=== PATIENT | female | born 1955 | race Caucasian/White ===

== ENCOUNTER 2016-11-04 21:26 | Emergency (ER) | payer MEDICARE, OTHER ==
[~2016-11-04] VITALS: Ht 160 cm; Wt 77.5 kg
[~2016-11-04 21:26] MED LIST: CLON1 PO; CLOP75 PO; CYCL-36 PO; FURO1TAB93 PO; GABA600T PO; LEXA20TA PO; LEXA5TAB PO; LOSA50TA PO; OMEP20TA PO; POTA-243 PO; QUET50TA PO; SIMV20 PO; TOPA25TA8 PO; TOPI50TA4 PO; [UNRECOGNIZED DRUG - CODE] INJ
[2016-11-04 21:30] VITALS: BP 102/50; PULSE 76; RESP 18; TEMP 98.2; O2SAT 98
[2016-11-04] MEDS ORDERED: LIDOCAINE HCL 1% 50 ML VIAL INFIL ONE (21:45)
[2016-11-04 22:17] LABS: AUTOMATED NEUTROPHIL # 2.5 TH/MM3 (1.8-7.7); BASOPHIL % 1.1 % (0.0-2.0); EOSINOPHIL # 0.1 TH/MM3 (0-0.4); EOSINOPHIL % 3.5 % (0.0-4.0); HEMATOCRIT 33.3 % (35.0-46.0); HEMO FLAGS DIFF FINAL; LYMPH % 30.1 % (9.0-44.0); LYMPHOCYTE # 1.2 TH/MM3 (1.0-4.8); MEAN CELL VOLUME 92.1 FL (80.0-100.0); MEAN CORPUSCULAR HEMOGLOBIN 32.1 PG (27.0-34.0); MEAN CORPUSCULAR HGB CONC 34.8 % (32.0-36.0); MONO % 8.1 % (0.0-8.0); NEUT % 57.2 % (16.0-70.0); PLATELET COUNT 187 TH/MM3 (150-450); RED BLOOD COUNT 3.62 MIL/MM3 (4.00-5.30); RED CELL DISTRIBUTION WIDTH 12.9 % (11.6-17.2); WHITE BLOOD COUNT 4.1 TH/MM3 (4.0-11.0)
--- NOTE | 2016-11-04 22:39 | PD ---
HPI Chief Complaint: Laceration/Skin Injury Time Seen by Provider: 22:25 Travel History International Travel<30 days: No Contact w/Intl Traveler<30days: No Traveled to known affect area: No History of Present Illness HPI 60 year-old woman, swelling of a cut on her left hand cutting it with a knife when she slipped and cut the webspace between her first and second digits on her left hand. She is on blood thinners, for thrombophilia, and had copious bleeding. She applied pressure and was brought to the emergency department. She is a she otherwise has been feeling well and healthy. No other complaints. PFSH Past Medical History Hx Anticoagulant Therapy: Yes Arthritis: Yes Asthma: No Blood Disorders: No Anxiety: Yes Depression: Yes Heart Rhythm Problems: No Cancer: No Cardiovascular Problems: No High Cholesterol: Yes Chemotherapy: No Congestive Heart Failure: No COPD: No Cerebrovascular Accident: No Diabetes: No Diminished Hearing: No Deep Vein Thrombosis: Yes (ANTITHROMBIN 3) Gastrointestinal Disorders: No GERD: Yes Glaucoma: No Genitourinary: Yes (UTI ) Headaches: Yes Hepatitis: No Hiatal Hernia: No Hypertension: Yes Immune Disorder: No Implanted Vascular Access Dvce: No Kidney Stones: Yes Musculoskeletal: Yes (BACK PAIN ) Neurologic: Yes (NEUROPATHY ) Psychiatric: No Reproductive: Yes (total hysterectomy) Respiratory: No Migraines: Yes Myocardial Infarction: No Radiation Therapy: No Seizures: No Sleep Apnea: No Thyroid Disease: No Ulcer: No Tetanus Vaccination: Unknown ?: Not Past Surgical History Abdominal Aneurysm Repair: No Abdominal Surgery: No Appendectomy: Yes Cardiac Surgery: No Cholecystectomy: No Ear Surgery: No Endocrine Surgery: No Eye Surgery: No Genitourinary Surgery: No Gynecologic Surgery: Yes (BREAST BIOPSY/ UTERINE REPAIR) Hysterectomy: Yes Neurologic Surgery: No Oral Surgery: No Pacemaker: No Thoracic Surgery: Yes (VENOUS BYPASS) Other Surgery: Yes (Left Knee Surgery/RIGHT KNEE ) Social History Alcohol Use: Yes Tobacco Use: No (she used to smoke based on the record but she denies on this visits ) Substance Use: Yes (DRUG/ALCOHOL ABUSE SINCE THE ) Allergies-Medications (Allergen,Severity, Reaction): Coded Allergies: Morphine (Verified Allergy, Mild, 11/04/16) STATES IF SHE TAKES IT FOR SEVERAL DAYS SHE FEELS LIKE SHE IS FLYING AROUND THE ROOM Uncoded Allergies: sliver (Allergy, Severe, 10/15/15) bright red rash burning pain Reported Meds & Prescriptions Reported Meds & Active Scripts Active Flexeril (Cyclobenzaprine HCl) 10 Mg Tab 10 Mg PO TID PRN Clonazepam 1 Mg Tab 1 Mg PO TID PRN Reported Topamax (Topiramate) 50 Mg Tab 50 Mg PO DAILY Lexapro (Escitalopram Oxalate) 20 Mg Tab 20 Mg PO DAILY Quetiapine Fumarate 50 mg (Quetiapine Fumarate) 50 Mg Tab 50 Mg PO HS Omeprazole 20 mg (Omeprazole) 20 Mg Tab 20 Mg PO BID Simvastatin 20 mg (Simvastatin) 20 Mg Tab 20 Mg PO HS Losartan Potassium 50 MG (Losartan Potassium) 50 Mg Tab 50 Mg PO DAILY Gabapentin 600 Mg Tab 600 Mg PO BID Plavix (Clopidogrel Bisulfate) 75 Mg Tab 75 Mg PO DAILY Arixtra 7.5 Mg Syr (Fondaparinux Sodium) 7.5 Mg/0.6 Ml Inj 7.5 Mg INJ DAILY Topamax (Topiramate) 25 Mg Tab 25 Mg PO DAILY Lexapro (Escitalopram Oxalate) 5 Mg Tab 5 Mg PO DAILY Lasix (Furosemide) 40 Mg Tab 40 Mg PO BIDPRN LEFT LEG SWELLING Klor-Con 10 Meq (Potassium Chloride) 10 Meq Tabcr 20 Meq PO BIDPRN WHEN TAKING LASIX FOR LEFT LEG SWELLING Review of Systems Except as stated in HPI: all other systems reviewed are Neg Physical Exam Narrative GENERAL: 60 year-old woman, no acute distress. SKIN: Warm and dry. CARDIOVASCULAR: Warm and well perfused. RESPIRATORY: Normal rate and effort. MUSCULOSKELETAL: Focus examination the left hand reveals a partially 3 cm laceration in the webspace between the first and second digit. There is active trickling bleeding. Tendon function appears full in flexion at the PIP DIP joints of all fingers, flexion at the IP joint of the thumb, abduction of the thumb, and opposition of the thumb and the pinky. There is no numbness or tingling in any of the digits. NEUROLOGICAL: Awake and alert. No gross deficits. Data Data Last Documented VS Vital Signs Date Time Temp Pulse Resp B/P Pulse Ox O2 Delivery O2 Flow Rate FiO2 11/04/16 21:30 98.2 76 18 102/50 98 Orders Lidocaine 1% Inj (50 Ml) (Xylocaine 1% I (11/04/16 21:45) Complete Blood Count With Diff (11/04/16 22:10) [id number] (Booster) Inj (Boostrix (11/04/16 23:00) Acetamin-Hydrocod 325-5 Mg ([place] 5-325 (11/04/16 23:00) Tetanus/Diphtheria Tox Adult (Tetanus/Di (11/04/16 23:15) Labs Laboratory Tests Test 11/04/16 22:10 White Blood Count 4.1 TH/MM3 Red Blood Count 3.62 MIL/MM3 Hemoglobin 11.6 GM/DL Hematocrit 33.3 % Mean Corpuscular Volume 92.1 FL Mean Corpuscular Hemoglobin 32.1 PG Mean Corpuscular Hemoglobin 34.8 % Concent Red Cell Distribution Width 12.9 % Platelet Count 187 TH/MM3 Mean Platelet Volume 7.6 FL Neutrophils (%) (Auto) 57.2 % Lymphocytes (%) (Auto) 30.1 % Monocytes (%) (Auto) 8.1 % Eosinophils (%) (Auto) 3.5 % Basophils (%) (Auto) 1.1 % Neutrophils # (Auto) 2.5 TH/MM3 Lymphocytes # (Auto) 1.2 TH/MM3 Monocytes # (Auto) 0.3 TH/MM3 Eosinophils # (Auto) 0.1 TH/MM3 Basophils # (Auto) 0.0 TH/MM3 CBC Comment DIFF FINAL Differential Comment MDM Medical Decision Making Medical Screen Exam Complete: Yes Emergency Medical Condition: Yes Differential Diagnosis Laceration, tendon injury, vascular injury, other Narrative Course Medical decision making INITIAL cause a 60 year-old woman presents to the emergency department with a laceration to the left hand. This was repaired primarily. Following the repair there was some concern about pallor to the third fourth and fifth finger. We just cleansed wound with room temperature saline. No epinephrine was used in anesthetizing the wound. She's had previous surgery to the wrist, and to the left thumb. She had a strong ulnar artery. Digital pulses were able to be found in the first second and third digits, but not the fourth or fifth in the left hand. However when compared to the opposite side there are no digital pulses in the fifth digit on the right hand either. She was monitored in the emergency department, developed no worsening pallor, paresthesias, pain, or limitations. Color improved. Procedures Procedure Narrative LACERATION LOCATION: Left hand LENGTH: 2-3 cm NUMBER OF STITCHES/MARIAN: 7 REPAIR: The area of the laceration was prepped with Betadine and sterilely draped. The laceration was infiltrated with 1% plain lidocaine the wound was copiously irrigated and explored without evidence of foreign body, tendon injury or neurovascular injury. Wound Was closed using 2 deep 4-0 Vicryl sutures. It was then approximated with 3 horizontal mattress sutures in the mid part of the wound, with a total of 7 simple interrupted sutures, 4-0 Prolene , on the outside part of the wound. Patient tolerated well. Diagnosis Primary Impression: Laceration of left hand Additional Instructions: Keep wound clean and dry. Do not wet for 24 hours. After 24 hours and clean the wound gently with soap and water. Gently clean wound twice daily with soap and water. Do not soak wound. No swimming, hot tubs, or allowing wound to get too wet. Apply antibiotic ointment to wound twice daily. Return to the emergency department for any worsening pain, swelling, redness, significant bleeding, or any other new or worsening symptoms. Return to the emergency department or follow-up with her primary doctor in 10 days for suture removal. Med/Other Pt SpecificInfo: Prescription(s) given Scripts Hydrocodone-Acetaminophen (Lortab)5-325 Mg Tab1-2 Tab PO Q6H PRN (PAIN) #12 TAB Prov:Jackson Gaviria MD 11/04/16 Disposition: 01 DISCHARGE HOME Condition: Stable Jackson Gaviria MD Nov 04, 2016 22:39
[2016-11-04] MEDS ORDERED: DIPHTH/TETANUS/ACEL PERTUSSIS (BOOSTER) 0.5 ML VIAL/PFS IM ONE (23:00)
[2016-11-04] MEDS ORDERED: ACETAMINOPHEN/HYDROcodone 325 MG/5 MG TAB PO ONE (23:00)
[2016-11-04] MEDS ORDERED: HYDR-3533 PO (23:03)
[2016-11-04] MEDS ORDERED: TETANUS/DIPHTHERIA TOXOID ADULT 0.5 ML VIAL IM ONE (23:15)
[2016-11-04 23:55] VITALS: BP 120/72
== END 2016-11-04 23:56 | disposition home or self-care (01) ==
LOC: PHED 21:26
DX: S61.412A Laceration without foreign body of left hand, initial encounter (principal); W26.0XXA Contact with knife, initial encounter; Z23 Encounter for immunization
CPT/HCPCS: 12032; 85025; 90471; 90714

== ENCOUNTER 2017-01-27 15:48 | Inpatient (IN) | payer MEDICARE, OTHER ==
[2017-01-27] VITALS (8 sets, daily range): BP systolic 105–157; BP diastolic 58–88; PULSE 74–84; RESP 14–24; TEMP 97.5–97.8; O2SAT 98–100
[~2017-01-27] VITALS: Ht 160 cm; Wt 74.1 kg
[~2017-01-27 15:48] MED LIST changes: +BACL20TA PO; +BACT800T5 PO; +CARA1TAB6 PO; +CLON0.5T PO; -CLON1 PO; -CLOP75 PO; -CYCL-36 PO; -FURO1TAB93 PO; +FURO40TA PO; -GABA600T PO; +GABA800T PO; -LEXA5TAB PO; +OMEP20CA2; -OMEP20TA PO; +OXYC-433 PO; +PLAV75TA29 PO; -POTA-243 PO; +POTA-245 PO; -QUET50TA PO; -SIMV20 PO; -TOPA25TA8 PO; +TOPA50TA7 PO; -TOPI50TA4 PO; +TRAZ100T6 PO; +TRAZ50TA12 PO; +ZOCO20TA PO; -[UNRECOGNIZED DRUG - CODE] INJ; +[UNRECOGNIZED DRUG - CODE] SQ
[2017-01-27] MEDS ORDERED: SODIUM CHLOR 0.9% 1000 ML INJ 1,000 ML IV ONE (16:01)
[2017-01-27] MEDS ORDERED: SODIUM CHLORIDE 0.9% FLUSH 10 ML FLUSH IVF PRN (16:15)
--- NOTE | 2017-01-27 16:52 | PD ---
HPI Chief Complaint: Alcohol/Drug Intoxication Time Seen by Provider: 15:54 Travel History International Travel<30 days: No Contact w/Intl Traveler<30days: No Traveled to known affect area: No History of Present Illness HPI The patient is a 61-year-old female who presents to the emergency department via EMS for altered mental status. EMS states they were called out to the patient's house twice, both times she was found somewhat altered, however , stated that she did not want to go to the hospital to receive medical treatment. EMS states that when they arrived the second time the police arrived , and when the patient refused to go to the hospital they place the patient under a Lebron act. The patient states she has chronic back pain with a tens unit and takes pain medications, however, was unable to tell me what pain medications and muscle relaxer she is currently taken. EMS states that when the patient fell asleep in route to the hospital she became somewhat hypoxic, therefore, they placed an IV and give the patient 2 doses of Narcan. They state that the Narcan did not help the patient, however, when she arrived to the emergency department she suddenly became awake, alert, and agitated. The patient is oriented 1 out of 3, is able to follow simple commands, but is somewhat belligerent. The patient is a somewhat limited historian secondary to current medical condition. PFSH Past Medical History Hx Anticoagulant Therapy: Yes Arthritis: Yes Asthma: No Blood Disorders: No Anxiety: Yes Depression: Yes Heart Rhythm Problems: No Cancer: No Cardiovascular Problems: No High Cholesterol: Yes Chemotherapy: No Congestive Heart Failure: No COPD: No Cerebrovascular Accident: No Diabetes: No Diminished Hearing: No Deep Vein Thrombosis: Yes (ANTITHROMBIN 3) Gastrointestinal Disorders: No GERD: Yes Glaucoma: No Genitourinary: Yes (UTI ) Headaches: Yes Hepatitis: No Hiatal Hernia: No Hypertension: Yes Immune Disorder: No Implanted Vascular Access Dvce: No Kidney Stones: Yes Musculoskeletal: Yes (BACK PAIN ) Neurologic: Yes (NEUROPATHY ) Psychiatric: No Reproductive: Yes (total hysterectomy) Respiratory: No Migraines: Yes Myocardial Infarction: No Radiation Therapy: No Seizures: No Sleep Apnea: No Thyroid Disease: No Ulcer: No Past Surgical History Abdominal Aneurysm Repair: No Abdominal Surgery: No Appendectomy: Yes Cardiac Surgery: No Cholecystectomy: No Ear Surgery: No Endocrine Surgery: No Eye Surgery: No Genitourinary Surgery: No Gynecologic Surgery: Yes (BREAST BIOPSY/ UTERINE REPAIR) Hysterectomy: Yes Neurologic Surgery: No Oral Surgery: No Pacemaker: No Thoracic Surgery: Yes (VENOUS BYPASS) Other Surgery: Yes (Left Knee Surgery/RIGHT KNEE ) Social History Alcohol Use: Yes Tobacco Use: No Substance Use: Yes (DRUG/ALCOHOL ABUSE SINCE THE S ) Allergies-Medications (Allergen,Severity, Reaction): Coded Allergies: silver (Unverified Allergy, Severe, 01/27/17) morphine (Unverified Allergy, Mild, 01/27/17) STATES IF SHE TAKES IT FOR SEVERAL DAYS SHE FEELS LIKE SHE IS FLYING AROUND THE ROOM Reported Meds & Prescriptions Reported Meds & Active Scripts Active Bactrim DS (Sulfamethoxazole-Trimethoprim) 800-160 Mg Tab 1 Tab PO BID Bactrim DS (Sulfamethoxazole-Trimethoprim) 800-160 Mg Tab 1 Tab PO BID Reported Trazodone (Trazodone HCl) 100 Mg Tablet 100 Mg PO HS Trazodone (Trazodone HCl) 50 Mg Tab 25 Mg PO HS Topamax (Topiramate) 50 Mg Tab 50 Mg PO BID Lexapro (Escitalopram Oxalate) 20 Mg Tab 20 Mg PO DAILY Clonazepam 0.5 Mg Tab 0.5 Mg PO DAILY Gabapentin 800 Mg Tab 800 Mg PO TID Oxycodone-Acetaminophen 10-325 mg Tab 1 Tab PO Q6H PRN Baclofen 20 Mg Tab 20 Mg PO TID Carafate (Sucralfate) 1 Gm Tab 1 Gm PO QID On empty stomach Omeprazole 20 Mg Cap Plavix (Clopidogrel Bisulfate) 75 Mg Tab 75 Mg PO DAILY Arixtra Inj (Fondaparinux) 7.5 Mg/0.6 Ml Syr 7.5 Mg SQ Q24H Klor-Con M20 (Potassium Chloride Microencaps) 20 Meq Tab 20 Meq PO DAILY Furosemide 40 Mg Tab 40 Mg PO DAILY Zocor (Simvastatin) 20 Mg Tab 20 Mg PO DAILY Losartan (Losartan Potassium) 50 Mg Tab 50 Mg PO DAILY Review of Systems ROS Limitations: Clinical Condition, Poor Historian Except as stated in HPI: all other systems reviewed are Neg Cardiovascular: No: Chest Pain or Discomfort Respiratory: No: Shortness of Breath Gastrointestinal: No: Nausea, Vomiting, Abdominal Pain Neurologic: Positive: Change in Mentation Physical Exam Narrative GENERAL: Awake, somewhat belligerent 61-year-old female appears her stated age and is in no acute respiratory distress. SKIN: Focused skin assessment warm/dry. HEAD: Atraumatic. Normocephalic. EYES: Pupils equal and round. Pupils are 5 mm bilateral and reactive. ENT: No nasal bleeding or discharge. Mucous membranes pink and moist. NECK: Trachea midline. No JVD. CARDIOVASCULAR: Regular rate and rhythm. No murmur appreciated. RESPIRATORY: No accessory muscle use. Clear to auscultation. Breath sounds equal bilaterally. GASTROINTESTINAL: Abdomen soft, non-tender, nondistended. No rebound tenderness. Back place in place with 10 units. MUSCULOSKELETAL: No obvious deformities. No clubbing. No cyanosis. No edema. Moves all 4 extremities. NEUROLOGICAL: Awake and alert. No obvious cranial nerve deficits. Motor grossly within normal limits. Normal speech. Is oriented to month, but not the current year, president of [facility], or location. PSYCHIATRIC: Slightly altered, unable to assess. Data Data Last Documented VS Vital Signs Date Time Temp Pulse Resp B/P (MAP) Pulse Ox O2 Delivery O2 Flow Rate FiO2 01/27/17 16:38 98 Nasal Cannula 3.00 01/27/17 16:15 84 18 01/27/17 16:00 97.5 105/58 (74) Orders Orders Electrocardiogram (01/27/17 16:) Complete Blood Count With Diff (01/27/17 16:) Comprehensive Metabolic Panel (01/27/17 16:01) Prothrombin Time / Inr (Pt) (01/27/17 16:01) Act Partial Throm Time (Ptt) (01/27/17 16:) Urinalysis - C+S If Indicated (01/27/17 16:) Ct Brain W/O Iv Contrast(Rout) (01/27/17 16:01) Iv Access Insert/Monitor (01/27/17 16:01) Ecg Monitoring (01/27/17 16:01) Oximetry (01/27/17 16:) Psych Screen (01/27/17 16:01) Sodium Chloride 0.9% Flush (Ns Flush) (01/27/17 16:15) Sodium Chlor 0.9% 1000 Ml Inj (Ns 1000 M (01/27/17 16:01) Drug Screen, Random Urine (01/27/17 16:) Alcohol (Ethanol) (01/27/17 16:01) Salicylates (Aspirin) (01/27/17 16:01) Tylenol (Acetaminophen) (01/27/17 16:01) Naloxone Inj (Narcan Inj) (01/27/17 17:15) Admit Order (Ed Use Only) (01/27/17 18:07) Labs Laboratory Tests Test 01/27/17 16:36 01/27/17 17:55 White Blood Count 7.1 TH/MM3 Red Blood Count 3.77 MIL/MM3 Hemoglobin 12.1 GM/DL Hematocrit 35.8 % Mean Corpuscular Volume 95.0 FL Mean Corpuscular Hemoglobin 32.1 PG Mean Corpuscular Hemoglobin Concent 33.8 % Red Cell Distribution Width 13.4 % Platelet Count 270 TH/MM3 Mean Platelet Volume 7.3 FL Neutrophils (%) (Auto) 78.7 % Lymphocytes (%) (Auto) 12.8 % Monocytes (%) (Auto) 5.4 % Eosinophils (%) (Auto) 2.8 % Basophils (%) (Auto) 0.3 % Neutrophils # (Auto) 5.6 TH/MM3 Lymphocytes # (Auto) 0.9 TH/MM3 Monocytes # (Auto) 0.4 TH/MM3 Eosinophils # (Auto) 0.2 TH/MM3 Basophils # (Auto) 0.0 TH/MM3 CBC Comment DIFF FINAL Differential Comment Urine Color YELLOW Urine Turbidity CLEAR Urine pH 5.5 Urine Specific [place] 1.007 Urine Protein NEG mg/dL Urine Glucose (UA) NEG mg/dL Urine Ketones NEG mg/dL Urine Occult Blood SMALL Urine Nitrite NEG Urine Bilirubin NEG Urine Urobilinogen LESS THAN 2.0 MG/DL Urine Leukocyte Esterase TRACE Urine WBC 5 /hpf Urine Squamous Epithelial Cells <1 /hpf Urine Mucus FEW /lpf Microscopic Urinalysis Comment CULT NOT INDICATED Blood Urea Nitrogen 22 MG/DL Creatinine 2.05 MG/DL Random Glucose 88 MG/DL Total Protein 7.3 GM/DL Albumin 3.7 GM/DL Calcium Level 8.3 MG/DL Alkaline Phosphatase 98 U/L Aspartate Amino Transf (AST/SGOT) 24 U/L Alanine Aminotransferase (ALT/SGPT) 20 U/L Total Bilirubin 0.5 MG/DL Sodium Level 138 MEQ/L Potassium Level 3.3 MEQ/L Chloride Level 108 MEQ/L Carbon Dioxide Level 18.3 MEQ/L Anion Gap 12 MEQ/L Estimat Glomerular Filtration Rate 24 ML/MIN Salicylates Level LESS THAN 1.7 MG/DL Acetaminophen Level 3.4 MCG/ML Ethyl Alcohol Level LESS THAN 3 MG/DL MDM Medical Decision Making Medical Screen Exam Complete: Yes Emergency Medical Condition: Yes Medical Record Reviewed: Yes Interpretation(s) EKG reveals normal sinus rhythm with a rate 82. Q wave noted in lead 3. Laboratory Tests Test 01/27/17 16:36 White Blood Count 7.1 TH/MM3 Red Blood Count 3.77 MIL/MM3 Hemoglobin 12.1 GM/DL Hematocrit 35.8 % Mean Corpuscular Volume 95.0 FL Mean Corpuscular Hemoglobin 32.1 PG Mean Corpuscular Hemoglobin Concent 33.8 % Red Cell Distribution Width 13.4 % Platelet Count 270 TH/MM3 Mean Platelet Volume 7.3 FL Neutrophils (%) (Auto) 78.7 % Lymphocytes (%) (Auto) 12.8 % Monocytes (%) (Auto) 5.4 % Eosinophils (%) (Auto) 2.8 % Basophils (%) (Auto) 0.3 % Neutrophils # (Auto) 5.6 TH/MM3 Lymphocytes # (Auto) 0.9 TH/MM3 Monocytes # (Auto) 0.4 TH/MM3 Eosinophils # (Auto) 0.2 TH/MM3 Basophils # (Auto) 0.0 TH/MM3 CBC Comment DIFF FINAL Differential Comment Urine Color YELLOW Urine Turbidity CLEAR Urine pH 5.5 Urine Specific [place] 1.007 Urine Protein NEG mg/dL Urine Glucose (UA) NEG mg/dL Urine Ketones NEG mg/dL Urine Occult Blood SMALL Urine Nitrite NEG Urine Bilirubin NEG Urine Urobilinogen LESS THAN 2.0 MG/DL Urine Leukocyte Esterase TRACE Urine WBC 5 /hpf Urine Squamous Epithelial Cells <1 /hpf Urine Mucus FEW /lpf Microscopic Urinalysis Comment CULT NOT INDICATED Blood Urea Nitrogen 22 MG/DL Creatinine 2.05 MG/DL Random Glucose 88 MG/DL Total Protein 7.3 GM/DL Albumin 3.7 GM/DL Calcium Level 8.3 MG/DL Alkaline Phosphatase 98 U/L Aspartate Amino Transf (AST/SGOT) 24 U/L Alanine Aminotransferase (ALT/SGPT) 20 U/L Total Bilirubin 0.5 MG/DL Sodium Level 138 MEQ/L Potassium Level 3.3 MEQ/L Chloride Level 108 MEQ/L Carbon Dioxide Level 18.3 MEQ/L Anion Gap 12 MEQ/L Estimat Glomerular Filtration Rate 24 ML/MIN Salicylates Level LESS THAN 1.7 MG/DL Acetaminophen Level 3.4 MCG/ML Ethyl Alcohol Level LESS THAN 3 MG/DL Differential Diagnosis Differential diagnosis includes medication overdose, alcohol intoxication, polysubstance abuse, intracranial hemorrhage, hyponatremia, delirium. Narrative Course IV was established, labs are drawn and sent, and the patient was placed on cardiac telemetry monitoring and continuous pulse oximetry monitoring. EKG was ordered and interpreted. CT the brain was obtained. Salicylate level and acetaminophen level were sent to lab. The patient's creatinine was elevated, greater than 2, previous creatinines were normal. Potassium is minimally low, otherwise unremarkable. Salicylates and Tylenol was unremarkable. The patient would fall asleep easily, had deep inspirations, negative placed on oxygen. She did have a gag reflex, but fell asleep easily and needed a stiff sternal rub repetitively to awaken. The patient was administer Narcan 2 mg IV, this did not affect the patient's mental status. She may have mixed medication ingestion including benzodiazepines and opiates. The patient is a Lebron act, is unable to go to the medical floor or the psychiatric unit, will need observation in the intensive care unit overnight. Therefore, the on-call locks tender was paged for admission. The patient will need admission in the intensive care unit overnight to monitor her mental status and airway. Physician Communication Physician Communication The on-call locks tender was paged for admission. I discussed the patient with Dr. Velazco who agrees with admission. Diagnosis Primary Impression: Altered mental status Qualified Codes: R41.82 - Altered mental status, unspecified Additional Impression: Drug ingestion Qualified Codes: T50.904A - Poisoning by unspecified drugs, medicaments and biological substances, undetermined, initial encounter Admitting Information Admitting Physician Requests: Admit Condition: Stable Asa Siddiqui MD Jan 27, 2017 16:52
[2017-01-27 17:02] LABS: BLOOD, URINE SMALL (NEG); COMMENT (UR) CULT NOT INDICATED; CULTURE IF INDICATED CULT NOT INDICATED; GLUCOSE,URINE NEG (NEG); KETONE, URINE NEG (NEG); MUCUS URINE FEW /lpf (OCC); NITRITE,URINE NEG (NEG); PH, URINE 5.5 (5.0-8.5); SQUAMOUS EPITHELIAL CELL URINE <1 /hpf (0-5); URINE COLOR YELLOW (YELLW/STRAW)
[2017-01-27 17:03] LABS: AUTOMATED NEUTROPHIL # 5.6 TH/MM3 (1.8-7.7); BASOPHIL % 0.3 % (0.0-2.0); EOSINOPHIL # 0.2 TH/MM3 (0-0.4); EOSINOPHIL % 2.8 % (0.0-4.0); HEMATOCRIT 35.8 % (35.0-46.0); HEMO FLAGS DIFF FINAL; LYMPH % 12.8 % (9.0-44.0); LYMPHOCYTE # 0.9 TH/MM3 (1.0-4.8); MEAN CORPUSCULAR HEMOGLOBIN 32.1 PG (27.0-34.0); MEAN CORPUSCULAR HGB CONC 33.8 % (32.0-36.0); MONO % 5.4 % (0.0-8.0); NEUT % 78.7 % (16.0-70.0); PLATELET COUNT 270 TH/MM3 (150-450); RED BLOOD COUNT 3.77 MIL/MM3 (4.00-5.30); RED CELL DISTRIBUTION WIDTH 13.4 % (11.6-17.2); WHITE BLOOD COUNT 7.1 TH/MM3 (4.0-11.0)
[2017-01-27] MEDS ORDERED: NALOXONE HCL 2 MG/2 ML VIAL IV PUSH ONE (17:15)
[2017-01-27 17:17] LABS: ACETAMINOPHEN 3.4 MCG/ML (10.0-30.0); ALT (GPT) 20 U/L (10-53); ANION GAP 12 MEQ/L (5-15); AST (GOT) 24 U/L (15-37); BICARBONATE 18.3 MEQ/L (21.0-32.0); BLOOD UREA NITROGEN 22 MG/DL (7-18); CHLORIDE 108 MEQ/L (98-107); GLOMERULAR FILTRATION RATE 24 ML/MIN (>89); POTASSIUM 3.3 MEQ/L (3.5-5.1); SODIUM (NA) 138 MEQ/L (136-145)
[2017-01-27 17:19] LABS: ALKALINE PHOSPHATASE 98 U/L (45-117); TOTAL BILIRUBIN ADULT 0.5 MG/DL (0.2-1.0)
[2017-01-27 17:44] LABS: ALCOHOL LESS THAN 3 MG/DL (0-5)
--- NOTE | 2017-01-27 17:52 | RADRPT ---
EXAM DATE/TIME: 01/27/2017 17:38 [facility] COMPARISON: No previous studies available for comparison. INDICATIONS : Confusion with altered mental status,unresponsive. RADIATION DOSE: 34.95 CTDIvol (mGy) MEDICAL HISTORY : Hypertension. Deep venous thrombosis. SURGICAL HISTORY : Hysterectomy. venous bypass ENCOUNTER: Initial ACUITY: 1 day PAIN SCALE: 2/10 LOCATION: Bilateral cranial TECHNIQUE: Multiple contiguous axial images were obtained of the head. Using automated exposure control and adj ustment of the mA and/or kV according to patient size, radiation dose was kept as low as reasonably a chievable to obtain optimal diagnostic quality images. DICOM format image data is available electro nically for review and comparison. FINDINGS: There is no evidence for intracranial hemorrhage, mass effect, mass lesions, edema, or extra-axial fl uid collections. The visualized bony structures appear intact. The ventricles are normal size for t he patient's age. There are no signs of acute infarction for technique. CONCLUSION: Unremarkable study. Zita Pearson MD on January 27, 2017 at 17:49 Board Certified Radiologist. This report was verified electronically.
[2017-01-27 18:34] LABS: APTT (PATIENT) 28.5 SEC (24.3-30.1); PROTHROMBIN TIME - PATIENT 10.8 SEC (9.8-11.6)
[2017-01-27] MEDS ORDERED: MAGNESIUM HYDROXIDE SUSP 30 ML CUP PO PRN (19:45)
[2017-01-27] MEDS ORDERED: BISACODYL 10 MG SUPP RECTAL PRN (19:45)
[2017-01-27] MEDS ORDERED: CHLORHEXIDINE GLUCONATE 2 % 1 PACK (2 CLOTHS) TOP PRN (19:45)
[2017-01-27] MEDS ORDERED: SODIUM CHLORIDE 0.9% FLUSH 10 ML FLUSH PRN (19:45)
[2017-01-27] MEDS ORDERED: ACETAMINOPHEN 325 MG TAB PO PRN (19:45)
[2017-01-27] MEDS ORDERED: ONDANSETRON HCL 4 MG/2 ML VIAL IV PUSH PRN (19:45)
[2017-01-27] MEDS ORDERED: RESP: ALBUTEROL 2.5 MG/IPRATROPIUM 0.5 MG NEB (PRN) INH (19:45)
[2017-01-27] MEDS ORDERED: LACTULOSE SYRUP 20 GM/30 ML CUP PO PRN (19:45)
[2017-01-27] MEDS ORDERED: MISCELLANEOUS NURSING INFORMATION XX SCH (19:45)
--- NOTE | 2017-01-27 19:45 | HHI.HP ---
HPI Service Critical Care Medicine Primary Care Physician Unknown Admission Diagnosis drug ingestion, altered mental status, Lebron act Diagnosis: Travel History International Travel<30 Days: No Contact w/Intl Traveler <30 Da: No Traveled to Known Affected Are: No History of Present Illness 61-year-old female presents via EMS for altered mental status. EMS states they were called out to the patient's house twice, both times she was found somewhat altered, however, stated that she did not want to go to the hospital to receive medical treatment. EMS states that when they arrived the second time the police arrived, and when the patient refused to go to the hospital they place the patient under a Lebron act. The patient has chronic back pain and takes pain medications, however, was unable to clarify what pain medications and muscle relaxer she is currently taken. EMS states that when the patient fell asleep in route to the hospital she became somewhat hypoxic, therefore, they placed an IV and give the patient 2 doses of Narcan. They state that the Narcan did not help the patient, however, when she arrived to the emergency department she suddenly became awake, alert, and agitated. Review of Systems ROS Unobtainable due to altered mental status Past Family Social History Allergies: Coded Allergies: silver (Unverified Allergy, Severe, 01/27/17) morphine (Unverified Allergy, Mild, 01/27/17) STATES IF SHE TAKES IT FOR SEVERAL DAYS SHE FEELS LIKE SHE IS FLYING AROUND THE ROOM Past Medical History Anti-thrombin 3 deficiency, on Arixtra and Plavix Hypertension Peripheral neuropathy Mood disorder Hyperlipidemia Chronic pain syndrome Osteoarthritis Past Surgical History Tonsillectomy Appendectomy Cholecystectomy Hysterectomy Bilateral knee replacements Bilateral breast biopsies Reported Medications Reported Meds & Active Scripts Active Bactrim DS (Sulfamethoxazole-Trimethoprim) 800-160 Mg Tab 1 Tab PO BID Bactrim DS (Sulfamethoxazole-Trimethoprim) 800-160 Mg Tab 1 Tab PO BID Reported Trazodone (Trazodone HCl) 100 Mg Tablet 100 Mg PO HS Trazodone (Trazodone HCl) 50 Mg Tab 25 Mg PO HS Topamax (Topiramate) 50 Mg Tab 50 Mg PO BID Lexapro (Escitalopram Oxalate) 20 Mg Tab 20 Mg PO DAILY Clonazepam 0.5 Mg Tab 0.5 Mg PO DAILY Gabapentin 800 Mg Tab 800 Mg PO TID Oxycodone-Acetaminophen 10-325 mg Tab 1 Tab PO Q6H PRN Baclofen 20 Mg Tab 20 Mg PO TID Carafate (Sucralfate) 1 Gm Tab 1 Gm PO QID On empty stomach Omeprazole 20 Mg Cap Plavix (Clopidogrel Bisulfate) 75 Mg Tab 75 Mg PO DAILY Arixtra Inj (Fondaparinux) 7.5 Mg/0.6 Ml Syr 7.5 Mg SQ Q24H Klor-Con M20 (Potassium Chloride Microencaps) 20 Meq Tab 20 Meq PO DAILY Furosemide 40 Mg Tab 40 Mg PO DAILY Zocor (Simvastatin) 20 Mg Tab 20 Mg PO DAILY Losartan (Losartan Potassium) 50 Mg Tab 50 Mg PO DAILY Active Ordered Medications Current Medications Medications (Trade) Dose Ordered Sig/Karsten Route PRN Reason Start Time Stop Time Status Last Admin Dose Admin Baclofen (Lioresal) 20 mg TID PO 01/28/17 09:00 Clonazepam (KlonoPIN) 0.5 mg DAILY PO 01/28/17 09:00 Clopidogrel Bisulfate (Plavix) 75 mg DAILY PO 01/28/17 09:00 Escitalopram Oxalate (Lexapro) 20 mg DAILY PO 01/28/17 09:00 Fondaparinux (Arixtra Inj) 7.5 mg Q24H SQ 01/27/17 21:00 Gabapentin (Neurontin) 800 mg TID PO 01/28/17 09:00 Oxycodone/ Acetaminophen (Percocet 10-325 Mg) 1 tab Q6H PRN PO PAIN 6-10 01/27/17 19:45 Sucralfate (Carafate) 1 gm QID PO 01/27/17 21:00 Trimethoprim/ Sulfamethoxazole (Bactrim Ds 800-160 Mg) 1 tab BID PO 01/27/17 21:00 Topiramate (Topamax) 50 mg BID PO 01/27/17 21:00 Pravastatin Sodium (Pravachol) 40 mg DAILY PO 01/28/17 09:00 Trazodone HCl (Desyrel) 100 mg HS PO 01/27/17 21:00 Sodium Chloride 1,000 ml @ 84 mls/hr [id number] IV 01/27/17 19:34 Sodium Chloride (NS Flush) 2 ml UNSCH PRN .XX FLUSH AFTER USING IV ACCESS 01/27/17 19:45 Sodium Chloride (NS Flush) 2 ml BID .XX 01/27/17 21:00 Acetaminophen (Tylenol) 650 mg Q6H PRN PO PAIN 1-5 AND/OR FEVER >101F 01/27/17 19:45 Famotidine (Pepcid Inj) 10 mg Q12HR IV PUSH 01/27/17 21:00 Lorazepam (Ativan Inj) 1 mg Q1H PRN IV PUSH Agitation/Sedation 01/27/17 19:45 Ondansetron HCl (Zofran Inj) 4 mg Q6H PRN IV PUSH NAUSEA OR VOMITING 01/27/17 19:45 Albuterol/ Ipratropium (Duoneb Neb) 1 ampule Q2HR NEB PRN INH WHEEZING 01/27/17 19:45 Miscellaneous Information 1 Q361D XX 01/27/17 19:45 Chlorhexidine Gluconate (Chlorhexidine 2% Cloth) 3 pack Taper DAILY@04 TOP 01/28/17 04:00 01/24/18 03:59 Chlorhexidine Gluconate (Chlorhexidine 2% Cloth) 3 pack UNSCH PRN TOP HYGIENIC CARE 01/27/17 19:45 Senna/Docusate Sodium (Renee-Colace) 1 tab BID PO 01/27/17 21:00 Magnesium Hydroxide (Milk Of Magnesia Liq) 30 ml Q12H PRN PO MILD - MODERATE CONSTIPATION 01/27/17 19:45 Sennosides (Senokot) 17.2 mg Q12H PRN PO MODERATE - SEVERE CONSTIPATION 01/27/17 19:45 Bisacodyl (Dulcolax Supp) 10 mg DAILY PRN RECTAL SEVERE CONSITIPATION 01/27/17 19:45 Lactulose (Lactulose Liq) 30 ml DAILY PRN PO SEVERE CONSITIPATION 01/27/17 19:45 Family History Positive for diabetes and coronary artery disease Social History No documented history of alcohol or tobacco abuse Physical Exam Vital Signs Vital Signs Date Time Temp Pulse Resp B/P (MAP) Pulse Ox O2 Delivery O2 Flow Rate FiO2 01/27/17 19:40 84 14 128/63 (84) 98 Nasal Cannula 2.00 01/27/17 16:38 98 Nasal Cannula 3.00 01/27/17 16:15 84 18 94 Room Air 01/27/17 16:00 97.5 84 18 105/58 (74) 98 Physical Exam GENERAL: Well-nourished, well-developed patient. Confused and agitated SKIN: Warm and dry. HEAD: Normocephalic. EYES: No scleral icterus. No injection or drainage. NECK: Supple, trachea midline. No JVD or lymphadenopathy. CARDIOVASCULAR: Regular rate and rhythm without murmurs, gallops, or rubs. RESPIRATORY: Breath sounds equal bilaterally. No accessory muscle use. GASTROINTESTINAL: Abdomen soft, non-tender, nondistended. MUSCULOSKELETAL: No cyanosis, or edema. BACK: Nontender without obvious deformity. NEURO EXAM: GCS: M V E Mental Status: The patient is confused and agitated with a garbled speech. Cranial Nerves: Pupils are round, reactive to light. Reflexes: Biceps, patellar, and Achilles are 2/4 bilaterally. No clonus. Laboratory Laboratory Tests Test 01/27/17 16:36 01/27/17 17:55 White Blood Count 7.1 Red Blood Count 3.77 Hemoglobin 12.1 Hematocrit 35.8 Mean Corpuscular Volume 95.0 Mean Corpuscular Hemoglobin 32.1 Mean Corpuscular Hemoglobin Concent 33.8 Red Cell Distribution Width 13.4 Platelet Count 270 Mean Platelet Volume 7.3 Neutrophils (%) (Auto) 78.7 Lymphocytes (%) (Auto) 12.8 Monocytes (%) (Auto) 5.4 Eosinophils (%) (Auto) 2.8 Basophils (%) (Auto) 0.3 Neutrophils # (Auto) 5.6 Lymphocytes # (Auto) 0.9 Monocytes # (Auto) 0.4 Eosinophils # (Auto) 0.2 Basophils # (Auto) 0.0 CBC Comment DIFF FINAL Differential Comment Urine Color YELLOW Urine Turbidity CLEAR Urine pH 5.5 Urine Specific [place] 1.007 Urine Protein NEG Urine Glucose (UA) NEG Urine Ketones NEG Urine Occult Blood SMALL Urine Nitrite NEG Urine Bilirubin NEG Urine Urobilinogen LESS THAN 2.0 Urine Leukocyte Esterase TRACE Urine WBC 5 Urine Squamous Epithelial Cells <1 Urine Mucus FEW Microscopic Urinalysis Comment CULT NOT INDICATED Blood Urea Nitrogen 22 Creatinine 2.05 Random Glucose 88 Total Protein 7.3 Albumin 3.7 Calcium Level 8.3 Alkaline Phosphatase 98 Aspartate Amino Transf (AST/SGOT) 24 Alanine Aminotransferase (ALT/SGPT) 20 Total Bilirubin 0.5 Sodium Level 138 Potassium Level 3.3 Chloride Level 108 Carbon Dioxide Level 18.3 Anion Gap 12 Estimat Glomerular Filtration Rate 24 Salicylates Level LESS THAN 1.7 Urine Opiates Screen NEG Acetaminophen Level 3.4 Urine Barbiturates Screen NEG Urine Amphetamines Screen NEG Urine Benzodiazepines Screen NEG Urine Cocaine Screen NEG Urine Cannabinoids Screen NEG Ethyl Alcohol Level LESS THAN 3 Prothrombin Time 10.8 Prothromb Time International Ratio 1.0 Activated Partial Thromboplast Time 28.5 Result Diagram: 01/27/17 1636 01/27/17 1636 Imaging Last [address] 01/27/17 1601 Signed Impressions: Service Date/Time: January 17:38 - CONCLUSION: Unremarkable study. MD Ana Paula Walters VTE Risk Assessment Caprini VTE Risk Assessment: Mod/High Risk (score >= 2) Caprini Risk Assessment Model Point Value = 1 Point Value = 2 Point Value = 3 Point Value = 5 Age 41-60 Minor surgery BMI > 25 kg/m2 Swollen legs Varicose veins or History of unexplained or recurrent spontaneous Oral contraceptives or hormone replacement Sepsis (< 1 month) Serious lung disease, including pneumonia (< 1 month) Abnormal pulmonary function Acute myocardial infarction Congestive heart failure (< 1 month) History of inflammatory bowel disease Medical patient at bed rest Age 61-74 Arthroscopic surgery Major open surgery (> 45 min) Laparoscopic surgery (> 45 min) Malignancy Confined to bed (> 72 hours) Immobilizing plaster cast Central venous access Age >= 75 History of VTE Family history of VTE Factor V Leiden Prothrombin [id number] Lupus anticoagulant Anticardiolipin antibodies Elevated serum homocysteine Heparin-induced thrombocytopenia Other congenital or acquired thrombophilia Stroke (< 1 month) Elective arthroplasty Hip, pelvis, or leg fracture Acute spinal cord injury (< 1 month) Prophylaxis Regimen Total Risk Factor Score Risk Level Prophylaxis Regimen 0-1 Low Early ambulation 2 Moderate Order ONE of the following: *Sequential Compression Device (SCD) *Heparin 5000 units SQ BID 3-4 Higher Order ONE of the following medications: *Heparin 5000 units SQ TID *Enoxaparin/Lovenox 40 mg SQ daily (WT < 150 kg, CrCl > 30 mL/min) *Enoxaparin/Lovenox 30 mg SQ daily (WT < 150 kg, CrCl > 10-29 mL/min) *Enoxaparin/Lovenox 30 mg SQ BID (WT < 150 kg, CrCl > 30 mL/min) AND/OR *Sequential Compression Device (SCD) 5 or more Highest Order ONE of the following medications: *Heparin 5000 units SQ TID (Preferred with Epidurals) *Enoxaparin/Lovenox 40 mg SQ daily (WT < 150 kg, CrCl > 30 mL/min) *Enoxaparin/Lovenox 30 mg SQ daily (WT < 150 kg, CrCl > 10-29 mL/min) *Enoxaparin/Lovenox 30 mg SQ BID (WT < 150 kg, CrCl > 30 mL/min) AND *Sequential Compression Device (SCD) Assessment and Plan Assessment and Plan Altered mental status - Polypharmacy affect - Weeks all sedatives - CT head negative - Neuro checks per ICU protocol Anti-thrombin 3 deficiency - Arixtra and Plavix Hypertension - Currently normotensive - When necessary meds when indicated Peripheral neuropathy - Gabapentin Mood disorder - Lexapro - Clonazepam - Topiramate - Trazodone Hyperlipidemia - Pravastatin Chronic pain syndrome - Baclofen - Percocet DVT GI prophylaxis - Arixtra - Teds SCDs - Pepcid Critical Care: The total critical care time was 35 minutes. Time to perform other separately billable procedures was not included in the critical care time. Mehrdad Velazco MD Jan 27, 2017 19:45
[2017-01-27] MEDS: SODIUM CHLORIDE 0.9% FLUSH 10 ML FLUSH SCH (21:00)
[2017-01-27] MEDS: SULFAMETHOXAZOLE-TRIMETHOPRIM DS 800-160 MG TAB PO SCH (21:00)
[2017-01-27] MEDS: TOPIRAMATE 25 MG TAB PO SCH (21:00)
[2017-01-27] MEDS: DOCUSATE SODIUM 50 MG/SENNA 8.6 MG TAB PO SCH (21:00)
[2017-01-27] MEDS ORDERED: traZODone HCL 50 MG TAB PO SCH (21:00)
[2017-01-27] MEDS: SUCRALFATE 1 GM TAB PO SCH (21:00)
[2017-01-27] MEDS: traZODone HCL 100 MG TAB PO SCH (21:00)
[2017-01-27] MEDS: FAMOTIDINE 20 MG/2 ML VIAL IV PUSH SCH (22:42)
[2017-01-27] MEDS: FONDAPARINUX SODIUM 7.5 MG/0.6 ML SYRINGE SQ SCH (22:43)
[2017-01-28] VITALS (23 sets, daily range): BP systolic 101–131; BP diastolic 54–76; PULSE 74–87; RESP 12–39; TEMP 97.8–98.5; O2SAT 78–100
[2017-01-28] MEDS: traZODone HCL 100 MG TAB PO SCH ×2 (01:36→21:01)
[2017-01-28] MEDS: LORazepam 2 MG/ML VIAL IV PUSH PRN ×3 (01:37→21:06)
[2017-01-28] MEDS: CHLORHEXIDINE GLUCONATE 2 % 1 PACK (2 CLOTHS) TOP SCH (04:00)
[2017-01-28 04:40] LABS: AUTOMATED NEUTROPHIL # 5.4 TH/MM3 (1.8-7.7); BASOPHIL % 0.3 % (0.0-2.0); EOSINOPHIL # 0.1 TH/MM3 (0-0.4); HEMATOCRIT 43.2 % (35.0-46.0); HEMO FLAGS DIFF FINAL; LYMPH % 14.2 % (9.0-44.0); MEAN CELL VOLUME 97.8 FL (80.0-100.0); MEAN CORPUSCULAR HEMOGLOBIN 32.7 PG (27.0-34.0); MEAN CORPUSCULAR HGB CONC 33.5 % (32.0-36.0); MONO % 2.9 % (0.0-8.0); NEUT % 80.6 % (16.0-70.0); PLATELET COUNT 216 TH/MM3 (150-450); RED BLOOD COUNT 4.42 MIL/MM3 (4.00-5.30); RED CELL DISTRIBUTION WIDTH 13.8 % (11.6-17.2); WHITE BLOOD COUNT 6.7 TH/MM3 (4.0-11.0)
[2017-01-28 04:54] LABS: ALT (GPT) 26 U/L (10-53); ANION GAP 13 MEQ/L (5-15); AST (GOT) 29 U/L (15-37); CHLORIDE 111 MEQ/L (98-107); GLOMERULAR FILTRATION RATE 43 ML/MIN (>89); MAGNESIUM LESS THAN 0.3 MG/DL (1.5-2.5); POTASSIUM 3.3 MEQ/L (3.5-5.1); SODIUM (NA) 141 MEQ/L (136-145)
[2017-01-28 04:57] LABS: ALKALINE PHOSPHATASE 119 U/L (45-117); BLOOD UREA NITROGEN 20 MG/DL (7-18); TOTAL BILIRUBIN ADULT 0.6 MG/DL (0.2-1.0)
[2017-01-28] MEDS ORDERED: POTASSIUM CHLORIDE 25 MEQ EFFERVESCENT TAB PO ONE (06:45)
[2017-01-28] MEDS: TOPIRAMATE 25 MG TAB PO SCH ×3 (08:43→23:31)
[2017-01-28] MEDS: SULFAMETHOXAZOLE-TRIMETHOPRIM DS 800-160 MG TAB PO SCH ×2 (08:43→21:01)
[2017-01-28] MEDS: PRAVASTATIN SOD 40 MG TAB PO SCH ×2 (08:43→09:00)
[2017-01-28] MEDS: BACLOFEN 20 MG TAB PO SCH ×4 (08:43→18:00)
[2017-01-28] MEDS: CLOPIDOGREL 75 MG TAB PO SCH (08:43)
[2017-01-28] MEDS: ESCITALOPRAM OXALATE 20 MG TAB PO SCH ×2 (08:43→09:00)
[2017-01-28] MEDS: SUCRALFATE 1 GM TAB PO SCH ×4 (08:43→21:01)
[2017-01-28] MEDS: DOCUSATE SODIUM 50 MG/SENNA 8.6 MG TAB PO SCH ×2 (08:43→21:01)
[2017-01-28] MEDS: GABAPENTIN 400 MG CAP PO SCH ×3 (08:43→19:40)
[2017-01-28] MEDS: clonazePAM 0.5 MG TAB PO SCH ×2 (08:43→09:00)
[2017-01-28] MEDS: SODIUM CHLORIDE 0.9% FLUSH 10 ML FLUSH SCH ×2 (08:44→21:00)
[2017-01-28] MEDS: FAMOTIDINE 20 MG/2 ML VIAL IV PUSH SCH ×2 (08:44→21:02)
[2017-01-28] MEDS: SODIUM CHLOR 0.9% 1000 ML INJ 1,000 ML IV SCH ×3 (09:01→19:24)
--- NOTE | 2017-01-28 10:47 | HHI.CCPN ---
Subjective Remarks/Hospital Course 61-year-old female presents via EMS for altered mental status. EMS states they were called out to the patient's house twice, both times she was found somewhat altered, however, stated that she did not want to go to the hospital to receive medical treatment. EMS states that when they arrived the second time the police arrived, and when the patient refused to go to the hospital they place the patient under a Lebron act. The patient has chronic back pain and takes pain medications, however, was unable to clarify what pain medications and muscle relaxer she is currently taken. EMS states that when the patient fell asleep in route to the hospital she became somewhat hypoxic, therefore, they placed an IV and give the patient 2 doses of Narcan. They state that the Narcan did not help the patient, however, when she arrived to the emergency department she suddenly became awake, alert, and agitated. Subjective: 01/28: The patient continues to be altered, patient oriented to self. The patient was given an morning medications, which she subsequently held in mouth and spit out in the cup and was found in the hospital room. Patient was noted to have hypomagnesemia and hypokalemia electrolytes are being repleted. Labs are pending, per poison control recommendations. Psychiatry has been consulted , appreciate recommendations. Of note patient was previously admitted 10/2016 with similar diagnosis. Objective Vital Signs Date Time Temp Pulse Resp B/P (MAP) Pulse Ox O2 Delivery O2 Flow Rate FiO2 01/28/17 09:00 82 27 106/76 (86) 100 01/28/17 07:00 98.5 01/27/17 21:33 Nasal Cannula 2.00 Intake and Output 01/28/17 01/28/17 01/29/17 08:00 16:00 00:00 Intake Total 240 ml Output Total 1101 ml Balance -861 ml Result Diagram: 01/28/17 0421 01/28/17 0421 Imaging Last [address] 01/27/17 1601 Signed Impressions: Service Date/Time: January 17:38 - CONCLUSION: Unremarkable study. Zita Pearson MD Objective Remarks GENERAL: Well-nourished, well-developed patient, speaking inappropriately the majority of the time extremely confused with intermittent bouts of agitation SKIN: Warm and dry. HEAD: Normocephalic. EYES: No scleral icterus. No injection or drainage. NECK: Supple, trachea midline. No JVD or lymphadenopathy. CARDIOVASCULAR: Regular rate and rhythm without murmurs, gallops, or rubs. RESPIRATORY: Breath sounds equal bilaterally. No accessory muscle use. GASTROINTESTINAL: Abdomen soft, non-tender, nondistended. MUSCULOSKELETAL: No cyanosis, or edema. BACK: Nontender without obvious deformity. NEURO EXAM: GCS: M6 V4 E4 Mental Status: The patient is confused and agitated. Cranial Nerves: Pupils are round, reactive to light. Reflexes: Biceps, patellar, and Achilles are 2/4 bilaterally. No clonus. Urinary Catheter: Yes Assessment to: Remove Date of Insertion: Jan 27, 2017 Date of Removal: Jan 28, 2017 Vascular Central Line Catheter: No A/P Assessment and Plan Altered mental status - Polypharmacy affect - Weeks all sedatives - CT head negative - Neuro checks per ICU protocol Anti-thrombin 3 deficiency - Arixtra and Plavix Hypertension - Currently normotensive, hemodynamically stable - When necessary meds when indicated - Obtain baseline EKG Peripheral neuropathy - Gabapentin Mood disorder - Lexapro - Clonazepam - Topiramate - Trazodone Hyperlipidemia - Pravastatin Chronic pain syndrome - Baclofen - Percocet Hypokalemia Hypomagnesemia - Replete electrolytes per ICU protocol DVT GI prophylaxis - Arixtra - Teds SCDs - Pepcid Dispo: Level 2 Plan transfer this a.m. to [facility], psychiatry consulted. Discussed with CUPROUS CHLORIDE OPERATOR at bedside Physician Fara Mercado MD Jan 28, 2017 10:47
--- NOTE | 2017-01-28 11:46 | EKG ---
Date Performed: 01/27/2017 Time Performed: 16:32:17 PTAGE: 61 years EKG: Sinus rhythm NORMAL ECG PREVIOUS TRACING : 12/31/2015 11.17 No significant change from previous tracing noted. DOCTOR: Yo Wu Interpretating Date/Time 01/28/2017 11:45:25
--- NOTE | 2017-01-28 11:59 | EKG ---
Date Performed: 01/28/2017 Time Performed: 11:11:48 PTAGE: 61 years EKG: Sinus rhythm LOW QRS VOLTAGE IN PRECORDIAL LEADS BORDERLINE ECG PREVIOUS TRACING : 01/27/2017 16.32 No significant change from previous tracing noted. DOCTOR: Yo Wu Interpretating Date/Time 01/28/2017 11:58:51
[2017-01-28] MEDS: MAGNESIUM SULFATE 1 GM PREMIX 100 ML IV SCH ×2 (12:06→13:10)
[2017-01-28 12:40] LABS: INTERNATIONAL NORMALIZED RATIO 1.4 RATIO; PROTHROMBIN TIME - PATIENT 16.2 SEC (9.8-11.6)
--- NOTE | 2017-01-28 13:11 | HHI.PR ---
Subjective Remarks Follow-up altered mental status. Patient remains confused. She denies pain currently. No dyspnea. Objective Vitals Vital Signs Date Time Temp Pulse Resp B/P (MAP) Pulse Ox O2 Delivery O2 Flow Rate FiO2 01/28/17 12:00 86 16 104/54 (71) 97 01/28/17 11:01 84 20 103/54 (70) 97 01/28/17 11:00 84 19 97 01/28/17 11:00 97.8 01/28/17 09:00 82 27 106/76 (86) 100 01/28/17 08:41 83 39 131/58 (82) 100 01/28/17 08:00 85 29 96 01/28/17 07:00 98.5 01/28/17 06:00 83 01/28/17 04:00 82 01/28/17 03:00 85 12 101/57 (72) 94 01/28/17 02:00 85 01/28/17 00:00 74 01/27/17 23:00 74 01/27/17 23:00 74 24 157/88 (111) 100 01/27/17 22:00 77 01/27/17 21:33 100 Nasal Cannula 2.00 01/27/17 21:06 97.8 79 20 112/59 (76) 100 01/27/17 20:37 01/27/17 20:18 100 Nasal Cannula 2.00 01/27/17 19:40 84 14 128/63 (84) 98 Nasal Cannula 2.00 01/27/17 16:38 98 Nasal Cannula 3.00 01/27/17 16:15 84 18 94 Room Air 01/27/17 16:00 97.5 84 18 105/58 (74) 98 I/O 01/27/17 01/27/17 01/27/17 01/28/17 01/28/17 01/28/17 07:00 15:00 23:00 07:00 15:00 23:00 Intake Total 1000 ml 240 ml Output Total 1500 ml 1101 ml Balance -500 ml -861 ml Intake Oral 240 ml IV Total 1000 ml Output Urine Total 1500 ml 1100 ml Stool Total 1 ml Result Diagram: 01/28/17 0421 01/28/17 042 Imaging Last Impressions Head CT 01/27/17 1601 Signed Impressions: Service Date/Time: January 17:38 - CONCLUSION: Unremarkable study. Zita Pearson MD Objective Remarks General: No acute distress. Heart: Regular rate and rhythm. No murmur. Lungs: Clear to auscultation bilaterally. No wheezes, rales, or rhonchi. Breathing is nonlabored. Abdomen: Soft, nontender, nondistended. Extremities: No lower extremity edema. Psych: Alert, confused. States that the year is 1974. Procedures None Urinary Catheter: Yes Assessment to: Remove Date of Insertion: Jan 27, 2017 Date of Removal: Jan 28, 2017 Vascular Central Line Catheter: No A/P Problem List: (1) Encephalopathy ICD Code: G93.40 - Encephalopathy, unspecified (2) Hypertension ICD Code: I10 - Essential (primary) hypertension (3) Peripheral neuropathy ICD Code: G62.9 - Polyneuropathy, unspecified (4) Mood disorder ICD Code: F39 - Unspecified mood [affective] disorder (5) Hyperlipidemia ICD Code: E78.5 - Hyperlipidemia, unspecified (6) Chronic pain syndrome ICD Code: G89.4 - Chronic pain syndrome (7) Hypokalemia ICD Code: E87.6 - Hypokalemia (8) Hypomagnesemia ICD Code: E83.42 - Hypomagnesemia Assessment and Plan 1. Encephalopathy: Likely secondary to polypharmacy. CT of the head is negative. Continue neuro checks. 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 3. Hypertension: Blood pressure has been well controlled. 4. Peripheral neuropathy: Continue gabapentin. 5. Mood disorder: Continue Lexapro, clonazepam, trazodone. 6. Hyperlipidemia: Continue statin. 7. Chronic pain syndrome: Continue baclofen, Percocet. 8. Hypokalemia: Supplement potassium. Recheck labs in the morning. 9. Hypomagnesemia: Replace magnesium. Follow labs. 10. GI prophylaxis: Pepcid. 11. DVT prophylaxis: Arixtra, SCDs, ABRAHAM picharode. 12. Lebron act: Psychiatry consultation pending. Discharge Planning Possible transfer to medical/psychiatric unit soon. Neeraj Gomez MD Jan 28, 2017 13:11
[2017-01-28 13:26] LABS: ACETAMINOPHEN LESS THAN 2.0 MCG/ML (10.0-30.0); ALKALINE PHOSPHATASE 93 U/L (45-117); ALT (GPT) 20 U/L (10-53); ANION GAP 7 MEQ/L (5-15); AST (GOT) 25 U/L (15-37); BICARBONATE 25.5 MEQ/L (21.0-32.0); BLOOD UREA NITROGEN 18 MG/DL (7-18); CHLORIDE 112 MEQ/L (98-107); GLOMERULAR FILTRATION RATE 59 ML/MIN (>89); POTASSIUM 3.8 MEQ/L (3.5-5.1); SODIUM (NA) 144 MEQ/L (136-145); TOTAL BILIRUBIN ADULT 0.4 MG/DL (0.2-1.0)
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
[2017-01-28] MEDS: FONDAPARINUX SODIUM 7.5 MG/0.6 ML SYRINGE SQ SCH (21:03)
[2017-01-29] VITALS (8 sets, daily range): BP systolic 97–140; BP diastolic 53–72; PULSE 72–88; RESP 17–20; TEMP 96.7–97.9; O2SAT 95–98
[2017-01-29] MEDS: LORazepam 2 MG/ML VIAL IV PUSH PRN (00:29)
[2017-01-29] MEDS: CHLORHEXIDINE GLUCONATE 2 % 1 PACK (2 CLOTHS) TOP SCH (04:00)
[2017-01-29] MEDS: SODIUM CHLOR 0.9% 1000 ML INJ 1,000 ML IV SCH (07:19)
[2017-01-29] MEDS: DOCUSATE SODIUM 50 MG/SENNA 8.6 MG TAB PO SCH ×2 (09:00→21:35)
[2017-01-29] MEDS: clonazePAM 0.5 MG TAB PO SCH (09:39)
[2017-01-29] MEDS: SULFAMETHOXAZOLE-TRIMETHOPRIM DS 800-160 MG TAB PO SCH ×2 (09:39→21:35)
[2017-01-29] MEDS: BACLOFEN 20 MG TAB PO SCH ×3 (09:40→16:33)
[2017-01-29] MEDS: GABAPENTIN 400 MG CAP PO SCH ×3 (09:40→16:32)
[2017-01-29] MEDS: CLOPIDOGREL 75 MG TAB PO SCH (09:40)
[2017-01-29] MEDS: SUCRALFATE 1 GM TAB PO SCH ×4 (09:40→21:35)
[2017-01-29] MEDS: TOPIRAMATE 25 MG TAB PO SCH ×2 (09:40→21:36)
[2017-01-29] MEDS: oxyCODONE/ACETAMINOPHEN 10 MG/325 MG TAB PO PRN ×2 (09:40→16:33)
[2017-01-29] MEDS: FAMOTIDINE 20 MG/2 ML VIAL IV PUSH SCH ×2 (09:41→21:36)
[2017-01-29] MEDS: ESCITALOPRAM OXALATE 20 MG TAB PO SCH (09:41)
[2017-01-29] MEDS: PRAVASTATIN SOD 40 MG TAB PO SCH (09:41)
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
[2017-01-29] MEDS: SODIUM CHLORIDE 0.9% FLUSH 10 ML FLUSH SCH ×2 (09:42→21:36)
[2017-01-29 12:27] LABS: AUTOMATED NEUTROPHIL # 3.9 TH/MM3 (1.8-7.7); BASOPHIL % 0.9 % (0.0-2.0); EOSINOPHIL # 0.1 TH/MM3 (0-0.4); EOSINOPHIL % 2.1 % (0.0-4.0); HEMATOCRIT 34.5 % (35.0-46.0); HEMO FLAGS DIFF FINAL; LYMPH % 15.1 % (9.0-44.0); LYMPHOCYTE # 0.8 TH/MM3 (1.0-4.8); MEAN CELL VOLUME 94.3 FL (80.0-100.0); MEAN CORPUSCULAR HEMOGLOBIN 31.5 PG (27.0-34.0); MEAN CORPUSCULAR HGB CONC 33.4 % (32.0-36.0); MONO % 5.8 % (0.0-8.0); NEUT % 76.1 % (16.0-70.0); PLATELET COUNT 321 TH/MM3 (150-450); RED BLOOD COUNT 3.65 MIL/MM3 (4.00-5.30); RED CELL DISTRIBUTION WIDTH 13.8 % (11.6-17.2); WHITE BLOOD COUNT 5.1 TH/MM3 (4.0-11.0)
[2017-01-29 12:55] LABS: ANION GAP 10 MEQ/L (5-15); AST (GOT) 17 U/L (15-37); BICARBONATE 21.2 MEQ/L (21.0-32.0); BLOOD UREA NITROGEN 9 MG/DL (7-18); CHLORIDE 112 MEQ/L (98-107); GLOMERULAR FILTRATION RATE 75 ML/MIN (>89); MAGNESIUM 2.3 MG/DL (1.5-2.5); POTASSIUM 3.5 MEQ/L (3.5-5.1); SODIUM (NA) 143 MEQ/L (136-145)
[2017-01-29 13:13] LABS: ALKALINE PHOSPHATASE 89 U/L (45-117); ALT (GPT) 16 U/L (10-53); TOTAL BILIRUBIN ADULT 0.3 MG/DL (0.2-1.0)
[2017-01-29] MEDS ORDERED: POTASSIUM PHOSPHATE MONOBASIC 500 MG TAB PO ONE (13:45)
--- NOTE | 2017-01-29 16:33 | HHI.PR ---
Subjective Patient symptoms today Patient with psychiatric history now with urinary retention. Bladder scan identified over 1L of urine in bladder. Jacobson catheter in place. -Recommend maintain catheter in place until stabilization of her current psychosis -Once medically/psychiatrically improved, may remove jacobson catheter for voiding trial -If unable to void or PVR shows greater than 500cc, recommend replacement of jacobson catheter -She may be discharged with the jacobson catheter in place if unable to adequately void -Patient may follow-up with Urology in clinic after discharge for further management regarding her voiding status Objective Result Diagram: 01/29/17 1131 01/29/17 1131 Jose Alatorre MD Jan 29, 2017 16:33
[2017-01-29] MEDS: FONDAPARINUX SODIUM 7.5 MG/0.6 ML SYRINGE SQ SCH (21:35)
[2017-01-29] MEDS: traZODone HCL 50 MG TAB PO SCH (22:57)
[2017-01-29] MEDS: SUMAtriptan SUCCINATE 25 MG TAB PO PRN (23:01)
[2017-01-30] VITALS (10 sets, daily range): BP systolic 117–136; BP diastolic 60–67; PULSE 65–76; RESP 16–22; TEMP 96.7–97.9; O2SAT 95–98
[2017-01-30] MEDS: CHLORHEXIDINE GLUCONATE 2 % 1 PACK (2 CLOTHS) TOP SCH (04:00)
[2017-01-30] MEDS: oxyCODONE/ACETAMINOPHEN 10 MG/325 MG TAB PO PRN ×3 (06:30→17:58)
[2017-01-30] MEDS: SODIUM CHLOR 0.9% 1000 ML INJ 1,000 ML IV SCH ×2 (07:09→19:04)
[2017-01-30] MEDS: TOPIRAMATE 25 MG TAB PO SCH ×2 (08:32→21:29)
[2017-01-30] MEDS: BACLOFEN 20 MG TAB PO SCH ×3 (08:32→17:58)
[2017-01-30] MEDS: clonazePAM 0.5 MG TAB PO SCH (08:32)
[2017-01-30] MEDS: CLOPIDOGREL 75 MG TAB PO SCH (08:32)
[2017-01-30] MEDS: SUCRALFATE 1 GM TAB PO SCH ×4 (08:33→21:29)
[2017-01-30] MEDS: DOCUSATE SODIUM 50 MG/SENNA 8.6 MG TAB PO SCH ×2 (08:33→21:00)
[2017-01-30] MEDS: SULFAMETHOXAZOLE-TRIMETHOPRIM DS 800-160 MG TAB PO SCH ×2 (08:33→21:29)
[2017-01-30] MEDS: ESCITALOPRAM OXALATE 20 MG TAB PO SCH (08:33)
[2017-01-30] MEDS: GABAPENTIN 400 MG CAP PO SCH ×3 (08:33→17:58)
[2017-01-30] MEDS: PRAVASTATIN SOD 40 MG TAB PO SCH (08:33)
[2017-01-30] MEDS: FAMOTIDINE 20 MG/2 ML VIAL IV PUSH SCH ×2 (08:35→21:29)
[2017-01-30] MEDS: SODIUM CHLORIDE 0.9% FLUSH 10 ML FLUSH SCH ×2 (08:35→21:30)
[2017-01-30 09:25] LABS: MAGNESIUM 2.1 MG/DL (1.5-2.5)
[2017-01-30 09:49] LABS: BICARBONATE 22.2 MEQ/L (21.0-32.0); POTASSIUM 3.3 MEQ/L (3.5-5.1)
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
[2017-01-30] MEDS: traZODone HCL 50 MG TAB PO SCH (21:29)
[2017-01-30] MEDS: FONDAPARINUX SODIUM 7.5 MG/0.6 ML SYRINGE SQ SCH (21:30)
[2017-01-31] VITALS (11 sets, daily range): BP systolic 112–142; BP diastolic 57–68; PULSE 67–79; RESP 14–17; TEMP 96.4–98; O2SAT 95–98
[2017-01-31] MEDS: oxyCODONE/ACETAMINOPHEN 10 MG/325 MG TAB PO PRN ×4 (00:43→18:02)
[2017-01-31] MEDS: CHLORHEXIDINE GLUCONATE 2 % 1 PACK (2 CLOTHS) TOP SCH (04:00)
[2017-01-31] MEDS: SODIUM CHLOR 0.9% 1000 ML INJ 1,000 ML IV SCH ×2 (04:26→18:54)
[2017-01-31] MEDS: DOCUSATE SODIUM 50 MG/SENNA 8.6 MG TAB PO SCH ×2 (09:08→21:00)
[2017-01-31] MEDS: SULFAMETHOXAZOLE-TRIMETHOPRIM DS 800-160 MG TAB PO SCH ×2 (09:09→23:15)
[2017-01-31] MEDS: BACLOFEN 20 MG TAB PO SCH ×3 (09:09→18:02)
[2017-01-31] MEDS: CLOPIDOGREL 75 MG TAB PO SCH (09:09)
[2017-01-31] MEDS: SUCRALFATE 1 GM TAB PO SCH ×4 (09:09→23:15)
[2017-01-31] MEDS: PRAVASTATIN SOD 40 MG TAB PO SCH (09:09)
[2017-01-31] MEDS: clonazePAM 0.5 MG TAB PO SCH (09:10)
[2017-01-31] MEDS: ESCITALOPRAM OXALATE 20 MG TAB PO SCH (09:15)
[2017-01-31] MEDS: TOPIRAMATE 25 MG TAB PO SCH ×2 (09:17→23:16)
[2017-01-31] MEDS: GABAPENTIN 400 MG CAP PO SCH ×3 (09:18→18:02)
[2017-01-31] MEDS: FAMOTIDINE 20 MG/2 ML VIAL IV PUSH SCH ×2 (09:18→23:17)
[2017-01-31] MEDS: SODIUM CHLORIDE 0.9% FLUSH 10 ML FLUSH SCH ×2 (09:19→23:17)
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
[2017-01-31] MEDS: FONDAPARINUX SODIUM 7.5 MG/0.6 ML SYRINGE SQ SCH (21:00)
[2017-01-31] MEDS: traZODone HCL 50 MG TAB PO SCH (23:15)
[2017-02-01] VITALS (8 sets, daily range): BP systolic 111–154; BP diastolic 58–69; PULSE 63–75; RESP 16–22; TEMP 96.3–98; O2SAT 93–99
[2017-02-01] MEDS: oxyCODONE/ACETAMINOPHEN 10 MG/325 MG TAB PO PRN ×4 (00:04→22:08)
[2017-02-01] MEDS: LORazepam 2 MG/ML VIAL IV PUSH PRN ×4 (03:08→23:39)
[2017-02-01] MEDS: CHLORHEXIDINE GLUCONATE 2 % 1 PACK (2 CLOTHS) TOP SCH (04:00)
[2017-02-01] MEDS: SODIUM CHLOR 0.9% 1000 ML INJ 1,000 ML IV SCH ×2 (04:41→18:44)
[2017-02-01] MEDS: CLOPIDOGREL 75 MG TAB PO SCH (09:00)
[2017-02-01] MEDS: TOPIRAMATE 25 MG TAB PO SCH ×2 (09:29→22:02)
[2017-02-01] MEDS: GABAPENTIN 400 MG CAP PO SCH ×3 (09:29→18:34)
[2017-02-01] MEDS: DOCUSATE SODIUM 50 MG/SENNA 8.6 MG TAB PO SCH ×2 (09:29→22:03)
[2017-02-01] MEDS: ESCITALOPRAM OXALATE 20 MG TAB PO SCH (09:29)
[2017-02-01] MEDS: SUCRALFATE 1 GM TAB PO SCH ×4 (09:29→22:02)
[2017-02-01] MEDS: BACLOFEN 20 MG TAB PO SCH ×3 (09:30→18:33)
[2017-02-01] MEDS: PRAVASTATIN SOD 40 MG TAB PO SCH (09:30)
[2017-02-01] MEDS: clonazePAM 0.5 MG TAB PO SCH (09:30)
[2017-02-01] MEDS: SULFAMETHOXAZOLE-TRIMETHOPRIM DS 800-160 MG TAB PO SCH ×2 (09:30→22:03)
[2017-02-01] MEDS: FAMOTIDINE 20 MG/2 ML VIAL IV PUSH SCH ×2 (09:31→21:00)
[2017-02-01] MEDS: SODIUM CHLORIDE 0.9% FLUSH 10 ML FLUSH SCH ×2 (09:32→22:04)
[2017-02-01] MEDS: SUMAtriptan SUCCINATE 25 MG TAB PO PRN (11:06)
[2017-02-01] MEDS ORDERED: LORATADINE 10 MG TAB PO ONE (15:15)
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
[2017-02-01] MEDS ORDERED: MULTIVITAMIN TAB PO ONE (16:45)
[2017-02-01] MEDS: SENNOSIDES 8.6 MG TAB PO PRN (18:38)
[2017-02-01] MEDS: FONDAPARINUX SODIUM 7.5 MG/0.6 ML SYRINGE SQ SCH (21:00)
[2017-02-01] MEDS: CHLORHEXIDINE GLUCONATE 0.12% 15 ML CUP SWISH-SPIT SCH ×2 (21:00→23:40)
[2017-02-01] MEDS: traZODone HCL 50 MG TAB PO SCH (22:03)
[2017-02-02] VITALS (9 sets, daily range): BP systolic 118–129; BP diastolic 57–63; PULSE 64–78; RESP 16–20; TEMP 96.4–97.1; O2SAT 93–99
[2017-02-02] MEDS: CHLORHEXIDINE GLUCONATE 2 % 1 PACK (2 CLOTHS) TOP SCH (04:00)
[2017-02-02] MEDS: SODIUM CHLOR 0.9% 1000 ML INJ 1,000 ML IV SCH ×2 (06:39→18:34)
[2017-02-02] MEDS ORDERED: ENOXAPARIN SODIUM 40 MG/0.4 ML SYRINGE SQ SCH (08:30)
[2017-02-02] MEDS ORDERED: LORATADINE 10 MG TAB PO SCH (09:00)
[2017-02-02] MEDS ORDERED: MULTIVITAMIN TAB PO SCH (09:00)
[2017-02-02] MEDS ORDERED: FONDAPARINUX SODIUM 7.5 MG/0.6 ML SYRINGE SQ ONE (09:15)
[2017-02-02] MEDS: ESCITALOPRAM OXALATE 20 MG TAB PO SCH (09:29)
[2017-02-02] MEDS: TOPIRAMATE 25 MG TAB PO SCH ×2 (09:29→21:00)
[2017-02-02] MEDS: BACLOFEN 20 MG TAB PO SCH ×3 (09:29→18:14)
[2017-02-02] MEDS: DOCUSATE SODIUM 50 MG/SENNA 8.6 MG TAB PO SCH ×2 (09:30→21:00)
[2017-02-02] MEDS: SUCRALFATE 1 GM TAB PO SCH ×4 (09:30→21:56)
[2017-02-02] MEDS: clonazePAM 0.5 MG TAB PO SCH (09:30)
[2017-02-02] MEDS: SULFAMETHOXAZOLE-TRIMETHOPRIM DS 800-160 MG TAB PO SCH (09:30)
[2017-02-02] MEDS: PRAVASTATIN SOD 40 MG TAB PO SCH (09:30)
[2017-02-02] MEDS: GABAPENTIN 400 MG CAP PO SCH ×3 (09:31→18:14)
[2017-02-02] MEDS: oxyCODONE/ACETAMINOPHEN 10 MG/325 MG TAB PO PRN ×3 (09:31→22:01)
[2017-02-02] MEDS: FAMOTIDINE 20 MG/2 ML VIAL IV PUSH SCH ×2 (09:31→21:00)
[2017-02-02] MEDS: SODIUM CHLORIDE 0.9% FLUSH 10 ML FLUSH SCH ×2 (09:32→21:58)
[2017-02-02] MEDS: CHLORHEXIDINE GLUCONATE 0.12% 15 ML CUP SWISH-SPIT SCH ×2 (09:32→21:00)
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
[2017-02-02] MEDS: SENNOSIDES 8.6 MG TAB PO PRN (12:39)
[2017-02-02] MEDS: LORazepam 2 MG/ML VIAL IV PUSH PRN ×2 (12:40→21:55)
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
--- NOTE | 2017-02-02 14:34 | HHI.DS ---
Discharge Summary Admission Date Jan 27, 2017 at 18:08 Discharge Date: Feb 02, 2017 Admitting Diagnosis drug ingestion, altered mental status, Lebron act (1) Hypophosphatemia ICD Code: E83.39 - Other disorders of phosphorus metabolism (2) Encephalopathy ICD Code: G93.40 - Encephalopathy, unspecified (3) Hypertension ICD Code: I10 - Essential (primary) hypertension (4) Peripheral neuropathy ICD Code: G62.9 - Polyneuropathy, unspecified (5) Mood disorder ICD Code: F39 - Unspecified mood [affective] disorder (6) Hypokalemia ICD Code: E87.6 - Hypokalemia (7) Hypomagnesemia ICD Code: E83.42 - Hypomagnesemia (8) Urinary retention ICD Code: R33.9 - Retention of urine, unspecified (9) Unspecified psychosis ICD Code: F29 - Unspecified psychosis not due to a substance or known physiological condition (10) Drug ingestion ICD Code: T50.901A - Poisoning by unspecified drugs, medicaments and biological substances, accidental (unintentional), initial encounter Status: Acute (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 EMS states they were called out to the patient's house twice, both times she was found somewhat altered, however, stated that she did not want to go to the hospital to receive medical treatment. EMS states that when they arrived the second time the police arrived, and when the patient refused to go to the hospital they place the patient under a Lebron act. The patient has chronic back pain and takes pain medications, however, was unable to clarify what pain medications and muscle relaxer she is currently taken. EMS states that when the patient fell asleep in route to the hospital she became somewhat hypoxic, therefore, they placed an IV and give the patient 2 doses of Narcan. They state that the Narcan did not help the patient, however, when she arrived to the emergency department she suddenly became awake, alert, and agitated. CBC/BMP: 01/29/17 1131 01/30/17 0731 Imaging Current Medications Medications (Trade) Dose Ordered Sig/Karsten Route Start Time Stop Time Status Last Admin (Lioresal) 20 mg TID PO 01/28/17 09:00 02/02/17 12:39 (KlonoPIN) 0.5 mg DAILY PO 01/28/17 09:00 02/02/17 09:30 (Plavix) 75 mg DAILY PO 01/28/17 09:00 Future Hold 01/31/17 09:09 (Lexapro) 20 mg DAILY PO 01/28/17 09:00 02/02/17 09:29 (Neurontin) 800 mg TID PO 01/28/17 09:00 02/02/17 12:39 (Percocet 10-325 Mg) 1 tab Q6H PRN PO 01/27/17 19:45 02/02/17 09:31 (Carafate) 1 gm QID PO 01/27/17 21:00 02/02/17 09:30 (Topamax) 50 mg BID PO 01/27/17 21:00 02/02/17 09:29 (Pravachol) 40 mg DAILY PO 01/28/17 09:00 02/02/17 09:30 Sodium Chloride 1,000 ml @ 84 mls/hr [id number] IV 01/27/17 19:34 01/28/17 19:24 (NS Flush) 2 ml UNSCH PRN .XX 01/27/17 19:45 (NS Flush) 2 ml BID .XX 01/27/17 21:00 02/02/17 09:32 (Tylenol) 650 mg Q6H PRN PO 01/27/17 19:45 (Ativan Inj) 1 mg Q1H PRN IV PUSH 01/27/17 19:45 02/02/17 12:40 (Zofran Inj) 4 mg Q6H PRN IV PUSH 01/27/17 19:45 (Duoneb Neb) 1 ampule Q2HR NEB PRN INH 01/27/17 19:45 Miscellaneous Information 1 Q361D XX 01/27/17 19:45 (Chlorhexidine 2% Cloth) Taper DAILY@04 TOP 01/28/17 04:00 01/24/18 03:59 02/02/17 04:00 (Chlorhexidine 2% Cloth) 3 pack UNSCH PRN TOP 01/27/17 19:45 (Renee-Colace) 1 tab BID PO 01/27/17 21:00 02/02/17 09:30 (Milk Of Magnesia Liq) 30 ml Q12H PRN PO 01/27/17 19:45 (Senokot) 17.2 mg Q12H PRN PO 01/27/17 19:45 02/02/17 12:39 (Dulcolax Supp) 10 mg DAILY PRN RECTAL 01/27/17 19:45 (Lactulose Liq) 30 ml DAILY PRN PO 01/27/17 19:45 (Desyrel) 150 mg HS PO 01/29/17 22:30 02/01/17 22:03 (Imitrex) 25 mg DAILY PRN PO 01/29/17 22:15 02/01/17 11:06 (Claritin) 10 mg DAILY PO 02/02/17 09:00 02/02/17 09:30 (Peridex 0.12% Liq) 15 ml BID SWISH-SPIT 02/01/17 21:00 02/02/17 09:32 (Theragran) 1 tab DAILY PO 02/02/17 09:00 02/02/17 09:29 (Pepcid Inj) 20 mg Q12HR IV PUSH 02/02/17 09:00 02/02/17 09:31 (Arixtra Inj) 7.5 mg Q24H SQ 02/03/17 21:00 PE at Discharge GENERAL: Well-nourished, well-developed patient in NAD. Sleeping but easily awakens to voice. Appears comfortable. SKIN: Warm and dry. (+)hyperpigmentation changes noted on LLE distally. HEAD: Normocephalic. Atraumatic. EYES: EOMI. No scleral icterus. No injection or drainage. ENT: No nasal bleeding or discharge. Mucous membranes pink and moist. NECK: Supple. Trachea midline. CARDIOVASCULAR: Regular rate and rhythm. S1, S2 noted. (+)murmur. RESPIRATORY: No accessory muscle use. Clear to auscultation. Breath sounds equal bilaterally. GASTROINTESTINAL: Abdomen soft, non-tender, nondistended. Normoactive bowel sounds x4. GENITOURINARY: German in place with clear yellow urine in the bag. MUSCULOSKELETAL: No obvious deformities. Extremities without clubbing, cyanosis , or edema. NEUROLOGICAL: Awake and alert. No obvious cranial nerve deficits. Motor grossly within normal limits. 5/5 muscle strength in bilateral upper and lower extremities. Normal speech. Pt update on day of discharge Patient seen and examined. States she feels well. Complaining about dietary choices on the menu. Patient reports refusing blood draw earlier today because skilled labor refused to draw blood from the right arm and was attempting to use too large of a needle per patient report. Patient states she is agreeable to having another security operations engineer come draw her blood. Patient out of Arixtra for 2 days but confirmed with pharmacy and nursing medication now available. Hospital Course 61-year-old female presents via EMS for altered mental status. EMS states they were called out to the patient's house twice, both times she was found somewhat altered, however, stated that she did not want to go to the hospital to receive medical treatment. EMS states that when they arrived the second time the police arrived, and when the patient refused to go to the hospital they place the patient under a Lebron act. The patient has chronic back pain and takes pain medications, however, was unable to clarify what pain medications and muscle relaxer she is currently taken. EMS states that when the patient fell asleep in route to the hospital she became somewhat hypoxic, therefore, they placed an IV and give the patient 2 doses of Narcan. They state that the Narcan did not help the patient, however, when she arrived to the emergency department she suddenly became awake, alert, and agitated. 1. Encephalopathy: Likely secondary to polypharmacy. Admitted to critical care service - please refer to their notes. CT of the head is negative. Resolved. 2. Psychosis: Patient under Lebron Act. Psychiatry following, appreciate their assistance. Plan to transfer to med/psych once open. Sitter at bedside. 3. 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 Patient states she does not need Plavix and is refusing the medication. Hematology consulted for clarification. Patient has not had her Arixtra due to hospital shortage. Confirmed with pharmacy and nursing staff medication now available. Patient received Arixtra dose today. 4. Hypertension: Blood pressure has been well controlled off of medications. Continue to monitor. 5. Peripheral neuropathy: Continue gabapentin. 6. Mood disorder: Continue Lexapro, clonazepam, trazodone unless otherwise indicated by psychiatry. 7. Hyperlipidemia: Continue statin. 8. Chronic pain syndrome: Continue baclofen, Percocet. Continue with PT - although patient refused today. 9. Hypokalemia: Supplement potassium. Repeat labs pending. 10. Hypophosphatemia: repletion ordered. Repeat labs pending. 11. Urinary retention: Patient had 1000 cc of urine on bladder scan. German catheter was placed. Evaluated by Urology, appreciate their recommendations - recommend maintaining catheter in place until stabilization of her current psychosis. 12. Dental caries: Peridex BID 13. Murmur: Obtain 2D echo for further evaluation. 14. GI prophylaxis: Pepcid. 15. DVT prophylaxis: Arixtra not available, Lovenox 40mg sq, Meggan, ABRAHAM mackenzie. Case discussed with patient, Denisse GUILLERMO, and Dr. Gomez. Pt Condition on Discharge: Stable Discharge Disposition: Disc to Psych Care Fac Discharge Time: > 30 minutes Discharge Instructions DIET: Follow Instructions for: Heart Healthy Diet Activities you can perform: Regular-No Restrictions Follow up Referrals: PCP Follow-up - 1 Week Urology - 1 Week Continued Medications: Baclofen (Baclofen) 20 Mg Tab 20 MG PO TID for Muscle Spasm, TAB 0 Refills Clonazepam (Clonazepam) 0.5 Mg Tab 0.5 MG PO DAILY, #60 TAB 0 Refills Clopidogrel (Plavix) 75 Mg Tab 75 MG PO DAILY for Blood Clot Prevention, #30 TAB 0 Refills Escitalopram (Lexapro) 20 Mg Tab 20 MG PO DAILY, #30 TAB 0 Refills Fondaparinux Inj (Arixtra Inj) 7.5 Mg/0.6 Ml Syr 7.5 MG SQ Q24H for Blood Clot Prevention, SYRINGE 0 Refills Gabapentin (Gabapentin) 800 Mg Tab 800 MG PO TID, #90 TAB 0 Refills Omeprazole (Omeprazole) 20 Mg Cap Oxycodone-Acetaminophen (Oxycodone-Acetaminophen) 10-325 mg Tab 1 TAB PO Q6H PRN for PAIN, TAB 0 Refills Simvastatin (Zocor) 20 Mg Tab 20 MG PO DAILY for Cholesterol Management, #30 TAB 0 Refills Topiramate (Topamax) 50 Mg Tab 50 MG PO BID for Control Seizures, #60 TAB 0 Refills Trazodone (Trazodone) 50 Mg Tab 50 MG PO HS for Control Depression, #30 TAB 0 Refills Trazodone (Trazodone) 100 Mg Tablet 100 MG PO HS for Control Depression, #30 TAB 0 Refills Discontinued Medications: Furosemide (Furosemide) 40 Mg Tab 40 MG PO DAILY, #30 TAB 0 Refills Losartan (Losartan) 50 Mg Tab 50 MG PO DAILY for Blood Pressure Management, #30 TAB 0 Refills Potassium Chloride Microencaps (Klor-Con M20) 20 Meq Tab 20 MEQ PO DAILY for Electrolyte Replacement, #30 TAB 0 Refills Sucralfate (Carafate) 1 Gm Tab 1 GM PO QID for Ulcer Prevention, #120 TAB 0 Refills On empty stomach Sulfamethoxazole-Trimethoprim (Bactrim DS) 800-160 Mg Tab 1 TAB PO BID for xxxx, #14 TAB 0 Refills Sulfamethoxazole-Trimethoprim (Bactrim DS) 800-160 Mg Tab 1 TAB PO BID for xxxx, #14 TAB 0 Refills Aissatou Hernandez Feb 02, 2017 14:34
[2017-02-02] MEDS ORDERED: CLAR10TA7 PO (14:35)
[2017-02-02 14:46] LABS: AUTOMATED NEUTROPHIL # 3.1 TH/MM3 (1.8-7.7); BASOPHIL % 0.8 % (0.0-2.0); EOSINOPHIL # 0.2 TH/MM3 (0-0.4); EOSINOPHIL % 3.4 % (0.0-4.0); HEMATOCRIT 37.6 % (35.0-46.0); HEMO FLAGS DIFF FINAL; LYMPH % 31.2 % (9.0-44.0); LYMPHOCYTE # 1.6 TH/MM3 (1.0-4.8); MEAN CELL VOLUME 94.6 FL (80.0-100.0); MEAN CORPUSCULAR HEMOGLOBIN 31.4 PG (27.0-34.0); MEAN CORPUSCULAR HGB CONC 33.2 % (32.0-36.0); NEUT % 59.6 % (16.0-70.0); PLATELET COUNT 325 TH/MM3 (150-450); RED BLOOD COUNT 3.98 MIL/MM3 (4.00-5.30); RED CELL DISTRIBUTION WIDTH 13.3 % (11.6-17.2); WHITE BLOOD COUNT 5.2 TH/MM3 (4.0-11.0)
[2017-02-02 15:11] LABS: BICARBONATE 21.8 MEQ/L (21.0-32.0); MAGNESIUM 2.1 MG/DL (1.5-2.5); POTASSIUM 3.6 MEQ/L (3.5-5.1)
[2017-02-02] MEDS: traZODone HCL 50 MG TAB PO SCH (21:55)
[2017-02-03] MEDS ORDERED: ENOXAPARIN SODIUM 40 MG/0.4 ML SYRINGE SQ SCH (14:00)
[2017-02-03] MEDS ORDERED: FONDAPARINUX SODIUM 7.5 MG/0.6 ML SYRINGE SQ SCH (21:00)
== END 2017-02-02 23:06 | DRG 917 ==
LOC: NEPE 15:48 → NEDA 18:08 → HIME 20:55 → HOCB 01-28 18:41
PROVIDERS: ADMIT Family Medicine; ATTEND Family Medicine
PROC: 0T9B70Z Drainage of Bladder with Drainage Device, Via Natural or Artificial Opening (ICD-10-PCS; principal; 2017-01-28)
DX: T50.901A Poisoning by unspecified drugs, medicaments and biological substances, accidental (unintentional), initial encounter (principal); G92 Toxic encephalopathy; D68.59 Other primary thrombophilia; G62.9 Polyneuropathy, unspecified; E83.42 Hypomagnesemia; E83.39 Other disorders of phosphorus metabolism; M19.90 Unspecified osteoarthritis, unspecified site; F32.9 Major depressive disorder, single episode, unspecified; F41.9 Anxiety disorder, unspecified; E78.00 Pure hypercholesterolemia, unspecified; K21.9 Gastro-esophageal reflux disease without esophagitis; M54.9 Dorsalgia, unspecified; Z87.442 Personal history of urinary calculi; G89.4 Chronic pain syndrome; Z96.653 Presence of artificial knee joint, bilateral; F39 Unspecified mood [affective] disorder; Z86.718 Personal history of other venous thrombosis and embolism; I73.9 Peripheral vascular disease, unspecified; E87.6 Hypokalemia; R33.9 Retention of urine, unspecified; K02.9 Dental caries, unspecified; Y92.009 Unspecified place in unspecified non-institutional (private) residence as the place of occurrence of the external cause; F10.10 Alcohol abuse, uncomplicated
CPT/HCPCS: 70450; 76937; 80048; 80053; 80307; 81001; 82140; 83735; 84100; 85025; 85300; 85610; 85730; 87641; 93005; 96361; 96374; J1652; J2060; J2310; J3475; J7030

== ENCOUNTER 2017-02-02 20:43 | Inpatient (IN) | payer MEDICARE, OTHER ==
[~2017-02-02] VITALS: Ht 160 cm; Wt 61.6 kg
[2017-02-02] MEDS: oxyCODONE/ACETAMINOPHEN 10 MG/325 MG TAB PO PRN (00:10)
[~2017-02-02 20:43] MED LIST changes: +CLAR10TA7 PO
[2017-02-03 00:33] VITALS: BP 135/64; PULSE 73; RESP 16; TEMP 97.9; O2SAT 98
[2017-02-03] MEDS ORDERED: LORazepam 2 MG/ML VIAL IM PRN (02:00)
[2017-02-03] MEDS ORDERED: LACTULOSE SYRUP 20 GM/30 ML CUP PO PRN (02:00)
[2017-02-03] MEDS ORDERED: ALUMINUM/MAGNESIUM/SIMETH 30 ML CUP PO PRN (02:00)
[2017-02-03] MEDS ORDERED: SENNOSIDES 8.6 MG TAB PO PRN (02:00)
[2017-02-03] MEDS ORDERED: MAGNESIUM HYDROXIDE SUSP 30 ML CUP PO PRN (02:00)
[2017-02-03] MEDS ORDERED: ACETAMINOPHEN 325 MG TAB PO PRN (02:00)
[2017-02-03] MEDS ORDERED: BISACODYL 10 MG SUPP RECTAL PRN (02:00)
[2017-02-03] MEDS ORDERED: QUEtiapine FUMARATE 25 MG TAB PO SCH (02:30)
[2017-02-03 06:07] VITALS: BP 100/59; PULSE 71; RESP 16; TEMP 97.7; O2SAT 96
[2017-02-03] MEDS: SUCRALFATE 1 GM TAB PO SCH ×3 (06:41→16:00)
[2017-02-03] MEDS: BACLOFEN 20 MG TAB PO SCH ×3 (09:00→18:30)
[2017-02-03] MEDS ORDERED: INFLUENZA VIRUS VACCINE (QUADRIVALENT) 0.5 ML SYR IM ONE (09:00)
[2017-02-03] MEDS: PRAVASTATIN SOD 40 MG TAB PO SCH ×2 (09:00→12:13)
[2017-02-03] MEDS: NICOTINE 21 MG/24 HR PATCH T-DERMAL SCH (09:00)
[2017-02-03] MEDS: ESCITALOPRAM OXALATE 20 MG TAB PO SCH ×2 (09:00→12:13)
[2017-02-03] MEDS: clonazePAM 0.5 MG TAB PO SCH (09:17)
[2017-02-03] MEDS: DOCUSATE SODIUM 50 MG/SENNA 8.6 MG TAB PO SCH ×2 (09:17→21:28)
[2017-02-03] MEDS: CLOPIDOGREL 75 MG TAB PO SCH (09:18)
[2017-02-03] MEDS: GABAPENTIN 400 MG CAP PO SCH ×3 (09:18→18:30)
[2017-02-03] MEDS: LORazepam 1 MG TAB PO PRN ×2 (09:52→18:31)
[2017-02-03] MEDS: oxyCODONE/ACETAMINOPHEN 10 MG/325 MG TAB PO PRN (12:17)
--- NOTE | 2017-02-03 14:38 | HHI.HP ---
Provisional Diagnosis Admission Date Feb 02, 2017 at 22:45 [place] I. Unspecified psychosis, history of bipolar disorder [place] II. Deferred Certification of Person's Competence To Provide Express and Informed Consent I have personally examined Mgagi Campo , a person being served at [facility] on, Feb 03, 2017 14:30. Express and informed consent means consent voluntarily given in writing, by a competent person, after sufficient explanation and disclosure of the subject matter involved to enable the person to make a knowing and willful decision without any element of force, fraud, deceit, duress, or other form of constraint or coercion. This person is 18 years of age or older, is not now known to be incompetent to consent to treatment with a guardian advocate, and does not have a health care surrogate or proxy currently making medical treatment decisions. I have found this person to be one of the following: [] Competent to provide express and informed consent, as defined above, for voluntary admission to this facility and is competent to provide express and informed consent for treatment. He/she has the consistent capacity to make well reasoned, willful, and knowing decisions concerning his or her medical or mental health treatment. The person fully and consistently understands the purpose of the admission for examination/placement and is fully capable of personally exercising all rights assured [place] [] Incompetent to provide express and informed consent to voluntary admission, and this is incompetent to provide express and informed consent to treatment. The person must be transferred to involuntary status and a petition for a guardian advocate filed with the Circuit Court. [X] Refusing to provide express and informed consent to voluntary admission but is competent to provide express and informed consent for treatment. The person must be discharged or transferred to involuntary status. Form shall be completed within 24 hours of a person's arrival at the receiving facility and filed in the clinical record of each person: 1. Admitted on a voluntary basis 2. Permitted to provide express and informed consent to his/her own treatment 3. Allowed to transfer from involuntary to voluntary status 4. Prior to permitting a person to consent to his or her own treatment after having been previously found incompetent to consent to treatment. History of Present Illness Capacity: Has Capacity HPI 01/28/2017 The patient is a 61-year-old woman, domiciled woman in [place], single, with 2 kids, retired, on Social Security, with psychiatric history of depression, anxiety, bipolar disorder, history of benzodiazepine and opiate abuse, she has been seeing in the ER before under Lebron act in 2016, documentation reviewed, she denies previous suicidal attempts, she seems to have an established outpatient care, no name of psychiatrist, she is on escitalopram 20 mg, clonazepam 1 mg twice a day, trazodone 100 mg, topiramate, who presents via EMS for altered mental status. EMS states they were called out to the patient's house twice, both times she was found somewhat altered, however, stated that she did not want to go to the hospital to receive medical treatment. EMS states that when they arrived the second time the police arrived , and when the patient refused to go to the hospital they place the patient under a Lebron act. The patient has chronic back pain and takes pain medications , however, was unable to clarify what pain medications and muscle relaxer she is currently taken. EMS states that when the patient fell asleep in route to the hospital she became somewhat hypoxic, therefore, they placed an IV and give the patient 2 doses of Narcan. They state that the Narcan did not help the patient, however, when she arrived to the emergency department she suddenly became awake, alert, and agitated. Consulted to psychiatry to address potential suicidal attempt and psychosis. Psychotic evaluation today patient is irritable, guarded, refusing to cooperate. Patient is very disorganized and demanding. She she seems to be fixed in her blood pressure, and even though he is reassured that is normal, she continued to be asking. Patient says that she doesn't know the reason she is here in the hospital. She says that most probably her roommate "who is a very bad person is in inventing things about me ". Patient looks around and states "everybody years seems to know everything about me now"and she is very concerned about my writings in papers. Patient knows that she is at [place], but she doesn't know the date and doesn't know who is the president. She doesn't seem to be aware of the current situation in [place] with the [facility]. Patient is talkative, disorganized, tangential, but redirectable. She reports frequent use of alcohol, but refused to quantify. Denies the use of illicit drugs. 02/03/2017 the patient is a 61-year-old woman, domiciled in [place] with a roommate, mother of 2 kids, unemployed, supported by [facility] he has psychiatric history of bipolar disorder, previous psychiatric hospitalizations, potential benzodiazepines use disorder, she has an established outpatient care, she is on Lexapro 20 mg, hoping 1 mg twice a day, trazodone 100 mg daily who was hospitalized due to overdose. On psychiatric evaluation today patient is oppositional, irritable, refusing to talk to me. Patient refuses to elaborate about recent overdose and is states that she doesn't belong to this place. Patient seems to be confused, internally stimulated and disoriented. She remains isolated, guarded and poorly communicative. No agitation or aggressive behavior reported. I discussed the case with nursing charge and social workers in order to complete the assessment by finding collateral information from psychiatrist and family members. Review of Systems ROS Limitations: Uncooperative Past Psych History Violence risk - self (6 mos) Increased to self Past Family Social History Coded Allergies: silver (Unverified Allergy, Severe, 01/27/17) morphine (Unverified Allergy, Mild, 01/27/17) STATES IF SHE TAKES IT FOR SEVERAL DAYS SHE FEELS LIKE SHE IS FLYING AROUND THE ROOM Active Scripts Loratadine (Claritin) 10 Mg Tablet, 10 MG PO DAILY for Allergies, #30 TAB Prov:Aissatou Hernandez 02/02/17 Reported Medications Trazodone (Trazodone) 100 Mg Tablet, 100 MG PO HS for Control Depression, #30 TAB 0 Refills 12/13/16 Trazodone (Trazodone) 50 Mg Tab, 50 MG PO HS for Control Depression, #30 TAB 0 Refills 12/13/16 Topiramate (Topamax) 50 Mg Tab, 50 MG PO BID for Control Seizures, #60 TAB 0 Refills 12/13/16 Escitalopram (Lexapro) 20 Mg Tab, 20 MG PO DAILY, #30 TAB 0 Refills 12/13/16 Clonazepam (Clonazepam) 0.5 Mg Tab, 0.5 MG PO DAILY, #60 TAB 0 Refills 12/13/16 Gabapentin (Gabapentin) 800 Mg Tab, 800 MG PO TID, #90 TAB 0 Refills 12/13/16 Oxycodone-Acetaminophen (Oxycodone-Acetaminophen) 10-325 mg Tab, 1 TAB PO Q6H Y for PAIN, TAB 0 Refills 12/13/16 Baclofen (Baclofen) 20 Mg Tab, 20 MG PO TID for Muscle Spasm, TAB 0 Refills 12/13/16 Omeprazole (Omeprazole) 20 Mg Cap 12/13/16 Clopidogrel (Plavix) 75 Mg Tab, 75 MG PO DAILY for Blood Clot Prevention, #30 TAB 0 Refills 12/13/16 Fondaparinux Inj (Arixtra Inj) 7.5 Mg/0.6 Ml Syr, 7.5 MG SQ Q24H for Blood Clot Prevention, SYRINGE 0 Refills 12/13/16 Simvastatin (Zocor) 20 Mg Tab, 20 MG PO DAILY for Cholesterol Management, #30 TAB 0 Refills 12/13/16 Discontinued Reported Medications Sucralfate (Carafate) 1 Gm Tab, 1 GM PO QID for Ulcer Prevention, #120 TAB 0 Refills On empty stomach 12/13/16 Potassium Chloride Microencaps (Klor-Con M20) 20 Meq Tab, 20 MEQ PO DAILY for Electrolyte Replacement, #30 TAB 0 Refills 12/13/16 Furosemide (Furosemide) 40 Mg Tab, 40 MG PO DAILY, #30 TAB 0 Refills 12/13/16 Losartan (Losartan) 50 Mg Tab, 50 MG PO DAILY for Blood Pressure Management, # 30 TAB 0 Refills 12/13/16 Discontinued Scripts Sulfamethoxazole-Trimethoprim (Bactrim DS) 800-160 Mg Tab, 1 TAB PO BID for xxxx , #14 TAB 0 Refills Prov:Mitesh Carrera III, MD 12/13/16 Sulfamethoxazole-Trimethoprim (Bactrim DS) 800-160 Mg Tab, 1 TAB PO BID for xxxx , #14 TAB 0 Refills Prov:Mitesh Carrera III, MD 12/13/16 Current Medications Medications (Trade) Dose Ordered Sig/Karsten Route Start Time Stop Time Status Last Admin (KlonoPIN) 0.5 mg DAILY PO 02/03/17 09:00 02/03/17 09:17 (Plavix) 75 mg DAILY PO 02/03/17 09:00 02/03/17 09:18 (Lexapro) 20 mg DAILY PO 02/03/17 09:00 02/03/17 12:13 (Neurontin) 800 mg TID PO 02/03/17 09:00 02/03/17 12:14 (Percocet 10-325 Mg) 1 tab Q6H PRN PO 02/03/17 01:45 02/03/17 12:17 (Carafate) 1 gm DAILY@0700,1100,1600 PO 02/03/17 07:00 02/03/17 12:11 (Carafate) 1 gm HS PO 02/03/17 21:00 (Pravachol) 40 mg DAILY PO 02/03/17 09:00 02/03/17 12:13 (Desyrel) 100 mg HS PO 02/03/17 21:00 (Lioresal) 20 mg TID PO 02/03/17 09:00 02/03/17 12:11 (Renee-Colace) 1 tab BID PO 02/03/17 09:00 02/03/17 09:17 (Milk Of Magnesia Liq) 30 ml Q12H PRN PO 02/03/17 02:00 (Senokot) 17.2 mg Q12H PRN PO 02/03/17 02:00 (Dulcolax Supp) 10 mg Q24H PRN RECTAL 02/03/17 02:00 (Lactulose Liq) 30 ml Q24H PRN PO 02/03/17 02:00 (Ativan) 1 mg Q6H PRN PO 02/03/17 02:00 02/03/17 09:52 (Ativan Inj) 1 mg Q6H PRN IM 02/03/17 02:00 02/03/17 02:25 (Tylenol) 650 mg Q4H PRN PO 02/03/17 02:00 (Mag-Al Plus Susp Liq) 30 ml Q6H PRN PO 02/03/17 02:00 (Habitrol 21 Mg Patch.24 Hr) 1 patch DAILY T-DERMAL 02/03/17 09:00 Miscellaneous Information 1 HS T-DERMAL 02/03/17 21:00 (Arixtra Inj) 7.5 mg Q24H SQ 02/03/17 21:00 Social History Patient was born and raised in [place], she lives in [place] with a roommate, single, , 2 kids, retired, highest level of education is some college Physical Exam Vital Signs Vital Signs Date Time Temp Pulse Resp B/P (MAP) Pulse Ox O2 Delivery O2 Flow Rate FiO2 02/03/17 06:07 97.7 71 16 100/59 (73) 96 I/O 02/03/17 02/03/17 02/04/17 08:00 16:00 00:00 Intake Total 480 ml Output Total 1800 ml Balance -1320 ml Mental Status Examination Appearance [place] woman, age appearing, hospital [facility], poorly cooperative, oppositional Speech: Hesitant Orientation: Person Memory: Impaired (describe) Thought Process: Other (disorganized) Thought Content: Paranoid Hallucination Type: None Suicidal Ideation: No Previous Suicide Attempts: Yes Homicidal Ideation: No Previous Homicide Attempts: No Judgment: Poor Affect: Irritable Mood: Angry Motor Activity: Normal gait Assessment & Plan Problem List: (1) Unspecified psychosis ICD Codes: F29 - Unspecified psychosis not due to a substance or known physiological condition Assessment & Plan: On psychiatric evaluation today patient is oppositional, guarded, irritable, also paranoid. Patient is a poor historian and poorly reliable. Patient is unable to clarify the reason of her hospitalization. There is a concern of an overdose suicidal intentions the could not be clarified during this encounter. Due to the level of psychosis and concerns about her safety patient needs to be admitted in psychiatry. Continue current psychotropics. Patient can be transferred to med psych. Continue current psychotropic regimen. Start Seroquel 50 twice a day. tip out worker intervention for collateral information, psychosocial assessment, individual and group therapy. Assessment & Plan Estimated LOS: Stanley Mirza MD Feb 03, 2017 14:38
--- NOTE | 2017-02-03 16:24 | PD.CONS ---
HPI Service [facility] Hospitalists Consult Requested By Dr. 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 Hospitalist consult requested for medical management, German care. I went to see the patient with Aissatou Hernandez PA-C. Upon my arrival to the room the patient asks "Who are you?" When she hears my name she starts yelling "I don't want anything to do with you. You wouldn't change my medications. You sent your gophers to see me." She would not answer any questions and would not allow physical exam by myself or the physician seed analysis laboratory assistant. Review of Systems ROS Limitations: Refused, Combative Past Family Social History Allergies: Coded Allergies: silver (Unverified Allergy, Severe, 01/27/17) morphine (Unverified Allergy, Mild, 01/27/17) STATES IF SHE TAKES IT FOR SEVERAL DAYS SHE FEELS LIKE SHE IS FLYING AROUND THE ROOM Past Medical History Anti-thrombin 3 deficiency Hypertension Peripheral neuropathy Mood disorder Hyperlipidemia Chronic pain syndrome Osteoarthritis Past Surgical History Tonsillectomy Appendectomy Cholecystectomy Hysterectomy Bilateral knee replacements Bilateral breast biopsies Reported Medications See list Family History Unobtainable. Patient refuses to answer. Social History Refuses to answer. Per previous records, patient reported alcohol use and history of drug abuse since the 1970s. Physical Exam Vital Signs Vital Signs Date Time Temp Pulse Resp B/P (MAP) Pulse Ox O2 Delivery O2 Flow Rate FiO2 02/03/17 06:07 97.7 71 16 100/59 (73) 96 02/03/17 00:33 97.9 73 16 135/64 (87) 98 Physical Exam Patient refuses to allow examination. Assessment and Plan Assessment and Plan 1. Mood disorder: Management per psychiatry. 2. Urinary retention: German catheter to remain in place per Urology consult . Follow up as outpatient. 3. Anti-thrombin 3 deficiency: Evaluated by hematology 02/02/17. Continue Arixtra. 4. Hypertension: BP well controlled off antihypertensive medication. 5. Peripheral neuropathy: Continue gabapentin. 6. Hyperlipidemia: Continue statin. 7. Chronic pain syndrome: Continue baclofen, Percocet. 8. Heart murmur: Previously noted on exam. Echo ordered, but cancelled when patient was transferred to psychiatry. Patient did not allow exam today to confirm presence of murmur. Neeraj Gomez MD Feb 03, 2017 16:24
[2017-02-03 18:29] VITALS: BP 115/55; PULSE 70; RESP 18; TEMP 98.4; O2SAT 97
[2017-02-03] MEDS ORDERED: REMOVE OLD NICOTINE PATCH T-DERMAL SCH (21:00)
[2017-02-03] MEDS ORDERED: traZODone HCL 100 MG TAB PO SCH (21:00)
[2017-02-03] MEDS ORDERED: FONDAPARINUX SODIUM 7.5 MG/0.6 ML SYRINGE SQ SCH (21:00)
[2017-02-03] MEDS ORDERED: SUCRALFATE 1 GM TAB PO SCH (21:00)
[2017-02-03] MEDS: QUEtiapine FUMARATE 25 MG TAB PO SCH (21:28)
[2017-02-04] MEDS: LORazepam 1 MG TAB PO PRN (00:30)
[2017-02-04 05:29] VITALS: BP 99/54; PULSE 65; RESP 14; TEMP 97.9; O2SAT 94
[2017-02-04] MEDS: SUCRALFATE 1 GM TAB PO SCH (07:00)
[2017-02-04] MEDS: NICOTINE 21 MG/24 HR PATCH T-DERMAL SCH (09:00)
[2017-02-04] MEDS: PRAVASTATIN SOD 40 MG TAB PO SCH (09:00)
[2017-02-04] MEDS: QUEtiapine FUMARATE 25 MG TAB PO SCH (09:00)
[2017-02-04] MEDS: DOCUSATE SODIUM 50 MG/SENNA 8.6 MG TAB PO SCH (09:19)
[2017-02-04] MEDS: GABAPENTIN 400 MG CAP PO SCH (09:20)
[2017-02-04] MEDS: BACLOFEN 20 MG TAB PO SCH (09:22)
[2017-02-04] MEDS: CLOPIDOGREL 75 MG TAB PO SCH (09:22)
[2017-02-04] MEDS: clonazePAM 0.5 MG TAB PO SCH (09:23)
[2017-02-04] MEDS: ESCITALOPRAM OXALATE 20 MG TAB PO SCH (09:23)
[2017-02-04] MEDS: oxyCODONE/ACETAMINOPHEN 10 MG/325 MG TAB PO PRN (09:41)
[2017-02-04] MEDS ORDERED: PLAV75TA29 PO (10:59)
[2017-02-04] MEDS ORDERED: QUET1TAB7 PO (10:59)
[2017-02-04] MEDS ORDERED: TOPA50TA7 PO (10:59)
[2017-02-04] MEDS ORDERED: NEUR400C PO (10:59)
[2017-02-04] MEDS ORDERED: TRAZ50TA12 PO (10:59)
[2017-02-04] MEDS ORDERED: LEXA20TA PO (10:59)
--- NOTE | 2017-02-04 11:08 | HHI.DS ---
Psychiatry Discharge Summary Inpatient Psychiatric care?: Yes Advance Directive: No Reason Not Provided: doesnt have one Mental Health AdvanceDirective: No Health Care Proxy: No Admission Admission Date Feb 02, 2017 at 22:45 Admission Diagnosis: (1) Unspecified psychosis ICD Code: F29 - Unspecified psychosis not due to a substance or known physiological condition Brief History 01/28/2017 The patient is a 61-year-old woman, domiciled woman in [place], single, with 2 kids, retired, on Social Security, with psychiatric history of depression, anxiety, bipolar disorder, history of benzodiazepine and opiate abuse, she has been seeing in the ER before under [place] act in 2016, documentation reviewed, she denies previous suicidal attempts, she seems to have an established outpatient care, no name of psychiatrist, she is on escitalopram 20 mg, clonazepam 1 mg twice a day, trazodone 100 mg, topiramate, who presents via EMS for altered mental status. EMS states they were called out to the patient's house twice, both times she was found somewhat altered, however, stated that she did not want to go to the hospital to receive medical treatment. EMS states that when they arrived the second time the police arrived , and when the patient refused to go to the hospital they place the patient under a [place] act. The patient has chronic back pain and takes pain medications , however, was unable to clarify what pain medications and muscle relaxer she is currently taken. EMS states that when the patient fell asleep in route to the hospital she became somewhat hypoxic, therefore, they placed an IV and give the patient 2 doses of Narcan. They state that the Narcan did not help the patient, however, when she arrived to the emergency department she suddenly became awake, alert, and agitated. Consulted to psychiatry to address potential suicidal attempt and psychosis. Psychotic evaluation today patient is irritable, guarded, refusing to cooperate. Patient is very disorganized and demanding. She she seems to be fixed in her blood pressure, and even though he is reassured that is normal, she continued to be asking. Patient says that she doesn't know the reason she is here in the hospital. She says that most probably her roommate "who is a very bad person is in inventing things about me ". Patient looks around and states "everybody years seems to know everything about me now"and she is very concerned about my writings in papers. Patient knows that she is at [place], but she doesn't know the date and doesn't know who is the president. She doesn't seem to be aware of the current situation in [place] with the [place]. Patient is talkative, disorganized, tangential, but redirectable. She reports frequent use of alcohol, but refused to quantify. Denies the use of illicit drugs. 02/03/2017 the patient is a 61-year-old woman, domiciled in [place] with a roommate, mother of 2 kids, unemployed, supported by [facility], he has psychiatric history of bipolar disorder, previous psychiatric hospitalizations, potential benzodiazepines use disorder, she has an established outpatient care, she is on Lexapro 20 mg, hoping 1 mg twice a day, trazodone 100 mg daily who was hospitalized due to overdose. On psychiatric evaluation today patient is oppositional, irritable, refusing to talk to me. Patient refuses to elaborate about recent overdose and is states that she doesn't belong to this place. Patient seems to be confused, internally stimulated and disoriented. She remains isolated, guarded and poorly communicative. No agitation or aggressive behavior reported. I discussed the case with nursing charge and social workers in order to complete the assessment by finding collateral information from psychiatrist and family members. Tobacco Use In Past 30 Days: No Tobacco Past 30 Days Alcohol Use: 2-3 Times Per Week Hospital Course Patient was admitted in the med psych unit transfer from medical floor due to acute psychosis, visual hallucinations and disorganization. Psychosocial and psychiatric assessment were performed. Immediate safety measures were taken. Patient was started in Seroquel 12.5 mg twice a day that was increased as the patient needed and symptoms improved. Patient was also restarted on Lexapro 20 mg and trazodone 50 mg for history of depressive symptoms. Patient showed good response and adherence to medications. During the hospitalization patient was mostly isolated, irritable, demanding, at times difficult to deal with. Drug seeking behavior was noted. Patient was very focused in pain medications and benzodiazepines. No agitation or aggressive behavior reported. Integration to therapist and group activities reported. Patient was wildly educated about the importance of complying with medications and also about avoiding alcohol and drug abuse. Patient was offered referral for rehabilitation programs but she declined. At the moment of discharge patient seems to be at baseline, denies depressive symptoms, denies anxiety, denies suicidal and homicidal ideation. No paranoia, no perceptual disturbances reported. Results Blood Pressure 99 / 54 Vital Signs Date Time Temp Pulse Resp B/P (MAP) Pulse Ox O2 Delivery O2 Flow Rate FiO2 02/04/17 05:29 97.9 65 14 99/54 (69 94 Reviewed Summary of Procedures No procedures done Pending results at discharge: No Medications # of Antipsychotic meds at D/C: 1 Approp Antipsych med options 1 - Minimum of three failed multiple trials of monotherapy. 2 - Documented plan to taper to monotherapy due to previous use of multiple meds OR cross-taper in progress at D/C. 3 - Documentation of augmentation of Clozapine. 4 - Justification other than those listed in allowable values 1-3, document here : Discharge Discharge Date: Feb 04, 2017 Discharge Diagnosis: (1) Benzodiazepine abuse Diagnosis: Secondary ICD Code: F13.10 - Sedative, hypnotic or anxiolytic abuse, uncomplicated Status: Acute (2) Unspecified psychosis Diagnosis: Principal ICD Code: F29 - Unspecified psychosis not due to a substance or known physiological condition Mental Status Exam at Disch woman, age appearing, good hygiene, irritable, superficially cooperative. Speech is soft and low volume. Mood is "okay", affect irritable. Thought content devoid of SI, HI, visual and auditory hallucinations. No paranoia or delusions. Thought process is logical, goal-directed, linear. Impulse control, judgment, insight is fair. Cognition is intact. Pt Condition on Discharge: Stable Discharge Disposition: Discharge Home Discharge Instructions Diet Instructions: As Tolerated, No Restrictions Activities you can perform: Regular-No Restrictions Scheduled Appointment: Discharge Time > 30 minutes Discharge/Advance Care Plan Health Problems: (1) Unspecified psychosis Goals to promote your health * To prevent worsening of your condition and complications * To maintain your health at the optimal level Directions to meet your goals Take your medications as prescribed Follow your dietary instruction Follow activity as directed Keep your appointments as scheduled Take your immunizations and boosters as scheduled If your symptoms worsen call your PCP, if no PCP go to Urgent Care Center or Emergency Room For 13/12 questions related to your inpatient stay or results of tests pending at discharge, please contact Dr. Stanley Kendall at Smoking is Dangerous to Your Health. Avoid second hand smoking Stanley Kendall MD Feb 04, 2017 11:08
== END 2017-02-04 14:55 | disposition home or self-care (01) | DRG 885 ==
LOC: H4EA 22:45
PROVIDERS: ADMIT Psychiatry & Neurology Psychiatry; ATTEND Psychiatry & Neurology Psychiatry
DX: F29 Unspecified psychosis not due to a substance or known physiological condition (principal); D68.59 Other primary thrombophilia; R56.9 Unspecified convulsions; F13.10 Sedative, hypnotic or anxiolytic abuse, uncomplicated; F32.9 Major depressive disorder, single episode, unspecified; I10 Essential (primary) hypertension; E78.5 Hyperlipidemia, unspecified; R33.9 Retention of urine, unspecified; G62.9 Polyneuropathy, unspecified; G89.4 Chronic pain syndrome; M19.90 Unspecified osteoarthritis, unspecified site; Z76.5 Malingerer [conscious simulation]
CPT/HCPCS: 90686; J1652; J2060; Q2038